=== PATIENT | female | born 1950 | race Caucasian/White ===

== ENCOUNTER 2022-04-14 11:59 | Inpatient (IN) ==
[2022-04-14 14:26] LABS: Basophils # (auto) 0.04 K/uL (0-0.2); Basophils % (auto) 0.2 %; Eosinophils # (auto) 0.12 K/uL (0-0.50); Eosinophils % (auto) 0.7 %; Hematocrit (blood only) 41.2 % (34.1-44.9); Hemoglobin 12.7 g/dl (12.0-16.0); Immature Granulocytes # (auto) 0.09 K/uL (0.00-0.02); Immature Granulocytes % (auto) 0.6 %; Lymphocytes # (auto) 1.54 K/uL (1.2-3.4); Lymphocytes % (auto) 9.6 %; Mean Corpuscular Hemoglobin 23.3 pg (25.0-34.0); Mean Corpuscular Hgb Conc 30.8 g/dL (32.0-36.0); Mean Corpuscular Volume 75.5 fL (80.0-100.0); Mean Platelet Volume 9.3 fL (9.4-12.3); Monocytes % (auto) 8.1 %; Neutrophils % (auto) 80.8 %; Platelet Count 295 K/uL (130-400); RDW Coefficient of Variation 18.9 % (11.5-14.5); RDW Standard Deviation 49.7 fL (36.4-46.3); Red Blood Count 5.46 M/uL (3.93-5.22); White Blood Count 16.09 K/ul (4.8-10.8)
[2022-04-14 14:52] LABS: Troponin I High Sensitivity 6.7 pg/ml (0-14)
[2022-04-14 15:04] LABS: Albumin Globulin Ratio 1.4 (0.9-2); Albumin Level 4.3 gm/dl (3.4-5.0); BUN Creatinine Ratio 18.4 (10-20); Bilirubin,Total 0.6 mg/dl (0.2-1.0); Calcium 9.6 mg/dl (8.5-10.1); Creatinine Clr Calc Pharmacy 62.8 ml/min; Est GFR (African American) 77.7 ml/min; Globulin 3.1 gm/dl (2.5-4.0); Potassium 4.3 mmol/L (3.5-5.1); Total Protein 7.4 gm/dl (6.0-8.3)
[2022-04-14 15:14] LABS: Influenza A virus by PCR Negative (Neg); Influenza B virus by PCR Negative (Neg); RSV by PCR Negative (Neg); SARS CoV2 RNA(COVID-19) Ceph NEGATIVE (Negative)
--- NOTE | 2022-04-14 15:46 | XRay Report ---
XR chest 2V PA/lateral CLINICAL HISTORY: Epigastric/chest pain TECHNIQUE: 2 views of the chest were obtained. Comparison: Comparison is made to chest radiograph 05/03/2018 FINDINGS: No lines and tubes are seen. Calcified aortic knob is seen. The lungs are clear. No evidence of pleur al effusion or pneumothorax. Degenerative changes are seen in the spine. IMPRESSION: No acute chest disease. ACT 112: Negative or not required by law. Electronically signed by: Marco Antonio Banuelos M.D. 04/14/2022 3:45 PM
[2022-04-14] MEDS ORDERED: OPTIRAY 350 100ml IV ONE (18:05)
--- NOTE | 2022-04-14 18:27 | CT Scan Report ---
CT SCAN OF THE ABDOMEN AND PELVIS WITH IV CONTRAST CLINICAL HISTORY: Generalized abdominal pain. COMPARISON STUDY: Abdominal radiograph dated 07/02/2008. TECHNIQUE: Following the IV administration of 86 cc of Optiray 350, CT scan of the abdomen and pelvi s is performed from the lung bases to the proximal femora. Images are reviewed in the axial, sagittal , and coronal planes. IV contrast was administered without complication. A dose lowering technique wa s utilized adhering to the principles of ALARA. CT DOSE: 548.01 mGy.cm FINDINGS: Lung bases: The heart is normal in size and without pericardial effusion. There are coronary artery c alcifications. The lung bases are clear noting bibasilar scarring/atelectasis. Liver: The contrast-enhanced liver is normal in size, contour, and attenuation. There is no intrahepa tic biliary ductal dilatation. The hepatic veins and portal veins are patent. There is periportal saturnino ma. Gallbladder: The gallbladder is slightly distended and contains calcified gallstones there is infiltr ation identified around the hepatic hilum and the appearance is suspicious for acute cholecystitis. Spleen: Normal in size and attenuation. Pancreas: Unremarkable. Adrenal glands: Unremarkable. Kidneys: The contrast enhanced kidneys demonstrate cortical atrophy and are without hydronephrosis. T he kidneys enhance symmetrically. A 2.2 cm cyst arises from the left kidney. Abdominal vasculature: The abdominal aorta is normal in course and caliber noting mild atheroscleroti c calcification. Bowel: Postsurgical change involving the stomach is consistent with a Willis-en-Y gastric bypass proced ure. There is mild to moderate colonic fecal retention. No bowel obstruction is seen. A duodenal dive rticulum is incidentally noted. The appendix is well-visualized and normal. A ventral hernia in the pelvis contains a nonobstructed small bowel loop. This is similar to 388. Peritoneum: There is no intraperitoneal free air or abdominal ascites. There is evidence of previous ventral hernia repair. There is laxity of the ventral abdominal wall with protrusion of abdominal con tents. Lymphadenopathy: None. Pelvic viscera: The bladder is decompressed and grossly unremarkable. The uterus is surgically absent . No adnexal lesion is seen. Surgical clips are present in the pelvis bilaterally. There is a fat-con taining groin hernia seen on the right. Skeletal structures: The skeletal structures are osteopenic. There is mild to moderate lumbosacral sp ondylosis. No lytic or blastic lesions are seen. IMPRESSION: 1. Cholelithiasis within a significantly distended gallbladder. Infiltration is seen in the hepatic h ilum and findings are suspicious for acute cholecystitis. Clinical and laboratory correlation will be required. A right upper quadrant ultrasound could be considered for further assessment. 2. A ventral hernia in the pelvis contains a nonobstructed small bowel loop. 3. Additional findings as above. ACT 112: Negative or not required by law. Electronically signed by: Hudson Curry M.D. 04/14/2022 6:24 PM
[2022-04-14] MEDS ORDERED: metroNIDAZOLE 500 MG/100 ML BAG IV STA (18:34)
[2022-04-14] MEDS ORDERED: cefTRIAXone SODIUM 1,000 MG in DEXTROSE 5% AD-VAN 50 ML IV STA (18:34)
--- NOTE | 2022-04-14 18:40 | Emergency Department Note ---
History of Present Illness General Chief Complaint: Abdominal Pain Stated Complaint: SHARP ABD PAIN, SHOULDER PAIN, SOB Time Seen by Provider: 04/14/22 18:00 History of Present Illness Provider Complaint: abdominal pain Onset (ago): hour(s) (7.5) Pain Consistency: intermittent Location: epigastric Radiation: back Severity: severe Maximum Pain Intensity: 9 Current Pain Intensity: 9 Quality: + stabbing and + sharp Relieved By: + nothing Exacerbated By: + nothing Context: no foreign travel, no possible food poisoning, no sick contacts, no recent antibiotic use, no recent injury or no history of similar episodes Associated Symptoms: + nausea; no vomiting, no diarrhea, no fever, no chills, no constipation, no dysuria, no hematemesis, no hematochezia, no melena, no hematuria, no syncope, no chest pain and no breathing difficulty Related Data Patient Confirmed : No Home Medications Medication Instructions Recorded Confirmed Type alprazolam 0.25 mg tablet (Xanax) 0.25 mg PO TID PRN Anxiety 02/25/18 01/16/22 History metoprolol succinate 25 mg 25 mg PO BID 02/25/18 01/16/22 History tablet,extended release 24 hr sertraline 100 mg tablet 100 mg PO BID 02/25/18 01/16/22 History cholecalciferol (vitamin D3) 50 50 mcg PO BID 10/15/20 01/16/22 History mcg (2,000 unit) capsule (Vitamin D3) losartan 100 mg tablet (Cozaar) 100 mg PO QPM 10/15/20 01/16/22 History rosuvastatin 5 mg tablet (Crestor) 5 mg PO QPM 10/15/20 01/16/22 History erythromycin 5 mg/gram (0.5 %) eye 0.5 inch ophthalmic (eye) BID #3.5 01/02/22 01/16/22 Rx ointment grams hydrocodone 5 mg-acetaminophen 325 1 tab PO Q4H PRN pain #10 tabs 01/02/22 01/16/22 Rx mg tablet Allergies Allergy/AdvReac Type Severity Reaction Status Date / Time adhesive Allergy Unknown SKIN Verified 01/16/22 08:09 IRRITATION nickel Allergy Unknown RASH Verified 01/16/22 08:09 Past Med/Surg History Medical History Anxiety Cardiac murmur no issues in years --has not seen cardio in>15 yrs Fatty liver Hearing deficit Hiatal hernia Hyperlipidemia Hypertension Migraine HX OF MIGRAINES Osteoarthritis HANDS Overactive bladder Restless leg syndrome Seasonal allergies Surgical History H/O bladder repair surgery X 2 H/O: hysterectomy History of carpal tunnel release RT/LEFT History of colonoscopy History of herniorrhaphy X 2 History of right cataract surgery History of tonsillectomy History of tooth extraction Hx of gastric bypass Nausea and vomiting after administration of anesthetic agent Family History Other No family history of adverse response to anesthesia Social History Smoking Status: Former smoker Cigarettes Per Day: QUIT 1984; Second Hand Exposure: No; Hx Alcohol Use: Yes Alcohol type: wine Hx Substance Use: No Preferred Language: Italian Communication Ability: Effective [employer] Project [employer] Required: No Beliefs That Will Affect Care: None Current Living Situation: Spouse Feels Safe at Home: Yes Assistive Devices: Glasses and Hearing Aid - Bilateral Physical Exam Vital Signs: Vital Signs - 24 hr 04/14/22 12:18 04/14/22 18:50 Temperature 36.5 C Temperature Source Temporal Artery Sc an Pulse Rate 54 L Pulse Rate [Apical ] 63 Pulse Rhythm Regular Pulse Rhythm [Apic al] Regular Pulse Strength Normal Pulse Strength [Ap ical] Normal Respiratory Rate 22 20 Respiratory Effort / Characteristics Non-Labored Sponta neous Non-Labored Sponta neous Respiratory Depth Normal Normal Respiratory Patter n Regular Regular Blood Pressure 196/105 H Blood Pressure [Ri ght Arm] 183/89 H Blood Pressure Bushra n 135 Blood Pressure Bushra n [Right Arm] 120 Blood Pressure Pos ition Sitting Blood Pressure Pos ition [Right Arm] Sitting Pulse Oximetry 96 97 Oxygen Delivery Me thod Room Air Room Air Sepsis Recent Feve r Within 48 Hours No Sepsis New/Unexpla ined Change in Men fan Status No Sepsis Action Take n by Nursing No Action Required Physical Exam: Physical Exam GENERAL: She is oriented to person, place, and time. She appears well-developed and well-nourished. She does not appear distressed. HENT: Exam performed. -Head: Normocephalic and atraumatic. -Right Ear: External ear normal. No mastoid tenderness. -Left Ear: External ear normal. No mastoid tenderness. -Mouth/Throat: The oropharynx is clear and moist. No trismus in the jaw. No dental abscesses or uvula swelling. No oropharyngeal exudate or tonsillar abscesses. EYES: Conjunctivae and EOM are normal. Pupils are equal, round, and reactive to light. Right eye exhibits no discharge. Left eye exhibits no discharge. No scleral icterus. NECK: Normal range of motion. Neck supple. No JVD present. No spinous process tenderness present. CV: Normal rate, regular rhythm, normal heart sounds and intact distal pulses. There is no peripheral edema. Palpable radial pulses bue. PULM/CHEST: Effort normal and breath sounds normal. No respiratory distress. No stridor. She has no wheezes. She has no rales. -Chest Wall: She exhibits no tenderness. ABD: The abdomen is soft. Bowel sounds are normal. She has no distension. No mass is present. There is tenderness to the epigastric area. There is no rebound, no guarding, no Onofre's sign and no tenderness at McBurney's point. Rovsig negative MUSC/SKEL: Normal range of motion. There is no peripheral edema, tenderness or deformity. LYMPH: No cervical adenopathy. NEURO: She is alert and oriented to person, place, and time. She has normal strength. No cranial nerve deficit or sensory deficit. Coordination and gait normal. GCS eye subscore is 4. GCS verbal subscore is 5. GCS motor subscore is 6. Cerebellar tests wnl. SKIN: Skin is warm and dry. She is not diaphoretic. PSYCH: She has a normal mood and affect. Behavior is normal. Judgment and thought content normal. Course Course 1800: The patient was evaluated in room B3. A complete history and physical exam was performed Cardiac monitoring: An order was placed for continuous cardiac monitoring. The monitor shows a rate of 50 with sinus rhythm Patient was seen during a time of extreme volume and extreme acuity in the emergency department. Nursing triage protocols were initiated and labs were drawn and imaging was conducted by protocol in the triage area. Labs show leukocytosis of 16. AST elevated 248 ALT 104 alkaline phosphatase [address] of the abdomen pelvis shows cholelithiasis with a distended gallbladder infiltration in the hepatic hilum consistent for acute cholecystitis. There is a ventral hernia of nonobstructed small bowel loop also. Patient will be treated with Rocephin and Flagyl in the emergency department. General surgery will be consulted. 1842: Spoke with Dr. Ochoa general surgery who asked that the patient be admitted to medicine and that an ultrasound of the right upper quadrant also be completed. 1916: [facility]. Administered Medications Discontinued Medications Ceftriaxone Sodium 1,000 mg/ (Dextrose) 50 mls @ 100 mls/hr IV NOW STA Stop: 04/14/22 19:03 Last Admin: 04/14/22 19:03 Dose: 100 mls/hr Documented By: ROSA Ioversol (Optiray 350 100ml) 80 ml IV ONCE ONE Stop: 04/14/22 18:06 Last Admin: 04/14/22 18:06 Dose: 80 ml Documented By: DASHA Medical Decision Making Laboratory Data Attestation: I reviewed the patient's lab results. 04/14/22 14:13 04/14/22 14:13 Lab Results 04/14/22 04/14/22 04/14/22 Range/Units 14:13 14:13 14:13 WBC 16.09 H (4.8-10.8) K/ul RBC 5.46 H (3.93-5.22) M/uL Hgb 12.7 (12.0-16.0) g/dl Hct 41.2 (34.1-44.9) % MCV 75.5 L (80.0-100.0) fL MCH 23.3 L (25.0-34.0) pg MCHC 30.8 L (32.0-36.0) g/dL RDW Std Deviation 49.7 H (36.4-46.3) fL RDW Coeff of Madonna 18.9 H (11.5-14.5) % Plt Count 295 (130-400) K/uL MPV 9.3 L (9.4-12.3) fL Immature Gran % (Auto) 0.6 % Neut % (Auto) 80.8 % Lymph % (Auto) 9.6 % [place] % (Auto) 8.1 % Eos % (Auto) 0.7 % Baso % (Auto) 0.2 % Neut # (Auto) 13.00 H (1.4-6.5) K/uL Lymph # (Auto) 1.54 (1.2-3.4) K/uL [place] # (Auto) 1.30 H (0.24-0.82) K/uL Eos # (Auto) 0.12 (0-0.50) K/uL Baso # (Auto) 0.04 (0-0.2) K/uL Immature Gran # (Auto) 0.09 H (0.00-0.02) K/uL Sodium 140 (136-145) mmol/L Potassium 4.3 (3.5-5.1) mmol/L Chloride 105 (98-107) mmol/L Carbon Dioxide 29 (21-32) mmol/L Anion Gap 6 (3-11) BUN 16 (6-23) mg/dl Creatinine 0.87 (0.6-1.2) mg/dl Est Cr Clr Drug Dosing 62.8 ml/min Est GFR ( Amer) 77.7 ml/min Est GFR (Non-Af Amer) 67.0 ml/min BUN/Creatinine Ratio 18.4 (10-20) Glucose 99 (70-99(Fasting)) mg/dl Calcium 9.6 (8.5-10.1) mg/dl Total Bilirubin 0.6 (0.2-1.0) mg/dl AST 248 H (13-39) U/L ALT 104 H (7-52) U/L Alkaline Phosphatase 158 H (34-104) U/L Troponin I High Sens 6.7 (0-14) pg/ml Total Protein 7.4 (6.0-8.3) gm/dl Albumin 4.3 (3.4-5.0) gm/dl Globulin 3.1 (2.5-4.0) gm/dl Albumin/Globulin Ratio 1.4 (0.9-2) Lipase 25 (11-82) U/L SARS-CoV-2 (PCR) NEGATIVE (Negative) Influenza Type A (PCR) Negative (Neg) Influenza Type B (PCR) Negative (Neg) RSV (RT-PCR) Negative (Neg) Imaging Data Radiologist's Impression: Chest X-Ray 04/14/22 15:10 XR chest 2V PA/lateral CLINICAL HISTORY: Epigastric/chest pain TECHNIQUE: 2 views of the chest were obtained. Comparison: Comparison is made to chest radiograph 05/03/2018 FINDINGS: No lines and tubes are seen. Calcified aortic knob is seen. The lungs are clear. No evidence of pleural effusion or pneumothorax. Degenerative changes are seen in the spine. IMPRESSION: No acute chest disease. ACT 112: Negative or not required by law. Electronically signed by: Marco Antonio Banuelos M.D. 04/14/2022 3:45 PM Abdomen/Pelvis CT 04/14/22 16:49 CT SCAN OF THE ABDOMEN AND PELVIS WITH IV CONTRAST CLINICAL HISTORY: Generalized abdominal pain. COMPARISON STUDY: Abdominal radiograph dated 07/02/2008. TECHNIQUE: Following the IV administration of 86 cc of Optiray 350, CT scan of the abdomen and pelvis is performed from the lung bases to the proximal femora. Images are reviewed in the axial, sagittal, and coronal planes. IV contrast was administered without complication. A dose lowering technique was utilized adhering to the principles of ALARA. CT DOSE: 548.01 mGy.cm FINDINGS: Lung bases: The heart is normal in size and without pericardial effusion. There are coronary artery calcifications. The lung bases are clear noting bibasilar scarring/atelectasis. Liver: The contrast-enhanced liver is normal in size, contour, and attenuation. There is no intrahepatic biliary ductal dilatation. The hepatic veins and portal veins are patent. There is periportal edema. Gallbladder: The gallbladder is slightly distended and contains calcified gallstones there is infiltration identified around the hepatic hilum and the appearance is suspicious for acute cholecystitis. Spleen: Normal in size and attenuation. Pancreas: Unremarkable. Adrenal glands: Unremarkable. Kidneys: The contrast enhanced kidneys demonstrate cortical atrophy and are without hydronephrosis. The kidneys enhance symmetrically. A 2.2 cm cyst arises from the left kidney. Abdominal vasculature: The abdominal aorta is normal in course and caliber noting mild atherosclerotic calcification. Bowel: Postsurgical change involving the stomach is consistent with a Willis-en-Y gastric bypass procedure. There is mild to moderate colonic fecal retention. No bowel obstruction is seen. A duodenal diverticulum is incidentally noted. The appendix is well-visualized and normal. A ventral hernia in the pelvis contains a nonobstructed small bowel loop. This is similar to 388. Peritoneum: There is no intraperitoneal free air or abdominal ascites. There is evidence of previous ventral hernia repair. There is laxity of the ventral abdominal wall with protrusion of abdominal contents. Lymphadenopathy: None. Pelvic viscera: The bladder is decompressed and grossly unremarkable. The uterus is surgically absent. No adnexal lesion is seen. Surgical clips are present in the pelvis bilaterally. There is a fat-containing groin hernia seen on the right. Skeletal structures: The skeletal structures are osteopenic. There is mild to moderate lumbosacral spondylosis. No lytic or blastic lesions are seen. IMPRESSION: 1. Cholelithiasis within a significantly distended gallbladder. Infiltration is seen in the hepatic hilum and findings are suspicious for acute cholecystitis. Clinical and laboratory correlation will be required. A right upper quadrant ultrasound could be considered for further assessment. 2. A ventral hernia in the pelvis contains a nonobstructed small bowel loop. 3. Additional findings as above. ACT 112: Negative or not required by law. Electronically signed by: Hudson Curry M.D. 04/14/2022 6:24 PM MDM Narrative 1800: The patient was evaluated in room B3. A complete history and physical exam was performed Cardiac monitoring: An order was placed for continuous cardiac monitoring. The monitor shows a rate of 50 with sinus rhythm Patient was seen during a time of extreme volume and extreme acuity in the emergency department. Nursing triage protocols were initiated and labs were drawn and imaging was conducted by protocol in the triage area. Labs show leukocytosis of 16. AST elevated 248 ALT 104 alkaline phosphatase [address] of the abdomen pelvis shows cholelithiasis with a distended gallbladder infiltration in the hepatic hilum consistent for acute cholecystitis. There is a ventral hernia of nonobstructed small bowel loop also. Patient will be treated with Rocephin and Flagyl in the emergency depa rtment. General surgery will be consulted. 1842: Spoke with Dr. Ochoa general surgery who asked that the patient be admitted to medicine and that an ultrasound of the right upper quadrant also be completed. 1916: Spoke with Dr. Henriquez [facility] limit the patient to her service. Impression & Plan Cholecystitis Discharge Plan Visit Data Chief Complaint: Abdominal Pain Stated Complaint: SHARP ABD PAIN, SHOULDER PAIN, SOB ED Provider: Imer Singletary Discharge Problem: Cholecystitis Patient Disposition: Admitted As Inpatient Forms Stand Alone Forms: [facility] [employer] Prescriptions Prescriptions: No Action erythromycin 5 mg/gram (0.5 %) ointment 0.5 inch ophthalmic (eye) BID Qty: 3.5 1RF hydrocodone-acetaminophen 5-325 mg tablet 1 tab PO Q4H PRN (Reason: pain) Qty: 10 0RF Rx Instructions: initial therapy Dr. Castillo [id number] sertraline 100 mg Tablet 100 mg PO BID alprazolam [Xanax] 0.25 mg Tablet 0.25 mg PO TID PRN (Reason: Anxiety) metoprolol succinate 25 mg Tablet Extended Release 24 Hr 25 mg PO BID losartan [Cozaar] 100 mg Tablet 100 mg PO QPM rosuvastatin [Crestor] 5 mg Tablet 5 mg PO QPM cholecalciferol (vitamin D3) [Vitamin D3] 50 mcg (2,000 unit) Capsule 50 mcg PO BID Hold Instructions: SURGERY Referrals Referrals: Bryce Lozano MD [Primary Care Provider] -
[2022-04-14] MEDS ORDERED: PIPERACILLIN/TAZOBACTAM 4.5 GM/120 ML BAG IV ONE (19:20)
[2022-04-14] MEDS ORDERED: METOPROLOL SUCC 25MG EXT REL TAB PO STA (19:23)
[2022-04-14] MEDS ORDERED: SODIUM CHLORIDE 0.9% 1000ML 1,000 ML IV ONE (19:23)
[2022-04-14] MEDS ORDERED: ALPRAZolam 0.25 MG TABLET PO STA (19:55)
--- NOTE | 2022-04-14 19:56 | History & Physical Report ---
Date of Service April 14, 2022 Assessment & Plan (1) Asymptomatic hypertensive urgency: Plan: Multifactorial : Acute cholecystitis, no sepsis for now Anxiety contributory Abnormal LFTs hx NAFLD Rule out CBD obstruction hyperlipidemia on statin Rx history of gastric bypass Medical telemetry given uncontrolled BP Zosyn Surgery consult Re: Acute cholecystitis (ER provider already in touch with provider communication clerk who recommends RUQ ultrasound.) N.p.o. until patient seen by surgery Analgesia, antiemetic as needed Facilitate home BP meds and titrate as needed Follow LFTs DVT prophylaxis. SCDs for now in anticipation of surgery Full code Patient requesting updates providers. Mr. Dyllan Llanos, contact #[phone]. Text document was generated using [employer] voice recognition software. It may contain grammatical or spelling errors. Kindly contact undersigned for clarification of any documentation item in question. History of Present Illness Chief Complaint: Abdominal pain Primary Care Provider: Bryce Lozano MD History obtained from patient, family, and records. Medical history significant for hypertension, hyperlipidemia, NAFLD, history of gastric bypass, anxiety disorder, past tobacco abuse. Patient experienced achy epigastric discomfort going to her shoulders and back today. No fever, no chills. No chest pain, no SOB. Prior episodes. Denies headache, admits to anxiety symptoms Highest SBP 200s at the ER. Ceftriaxone administered at the ER for possible cholecystitis Medical History as above Surgical History : Blepharoplasty, carpal tunnel surgery, cataract surgeries, hysterectomy, cystocele repair, ventral hernia repair Family History : Gallbladder disease, breast cancer, DM, heart disease Personal/Social history : Past tobacco abuse, occasional EtOH intake, retired director for adult living facility Allergies Allergy/AdvReac Type Severity Reaction Status Date / Time adhesive Allergy Unknown SKIN Verified 04/14/22 19:38 IRRITATION nickel Allergy Unknown RASH Verified 04/14/22 19:38 Home Medications Medication Instructions Recorded Confirmed Type alprazolam 0.25 mg tablet (Xanax) 0.25 mg PO TID PRN Anxiety 02/25/18 04/14/22 History metoprolol succinate 25 mg 25 mg PO BID 02/25/18 04/14/22 History tablet,extended release 24 hr sertraline 100 mg tablet 100 mg PO BID 02/25/18 04/14/22 History losartan 100 mg tablet (Cozaar) 100 mg PO QAM 10/15/20 04/14/22 History rosuvastatin 5 mg tablet (Crestor) 5 mg PO QPM /04/14/22 History Calcium W/ Vitamin D3 2 tab PO DAILY 04/14/22 04/14/22 History Collagen Ultra 1 tab PO DAILY 04/14/22 04/14/22 History amoxicillin 500 mg capsule 500 mg PO BID 04/14/22 04/14/22 History biotin 10 mg tablet 10 mg PO TID 04/14/22 04/14/22 History buspirone 15 mg tablet 7.5 - 15 mg PO TID PRN Anxiety 04/14/22 04/14/22 History chlorhexidine gluconate 0.12 % 15 ml PO BID 04/14/22 04/14/22 History mouthwash cholecalciferol (vitamin D3) 25 75 mcg PO DAILY 04/14/22 04/14/22 History mcg (1,000 unit) capsule (Vitamin D3) solifenacin 10 mg tablet 10 mg PO DAILY 04/14/22 04/14/22 History triamcinolone acetonide 0.1 % 1 applic topical BID PRN Skin 04/14/22 04/14/22 History topical cream Irritation Past Med/Surg History Medical History Anxiety Cardiac murmur no issues in years --has not seen cardio in>15 yrs Fatty liver Hearing deficit Hiatal hernia Hyperlipidemia Hypertension Migraine HX OF MIGRAINES Osteoarthritis HANDS Overactive bladder Restless leg syndrome Seasonal allergies Surgical History H/O bladder repair surgery X 2 H/O: hysterectomy History of carpal tunnel release RT/LEFT History of colonoscopy History of herniorrhaphy X 2 History of right cataract surgery History of tonsillectomy History of tooth extraction Hx of gastric bypass Nausea and vomiting after administration of anesthetic agent Family History Other No family history of adverse response to anesthesia Social History Smoking Status: Never smoker Cigarettes Per Day: QUIT 1984; Second Hand Exposure: No; Hx Alcohol Use: Yes Alcohol type: wine Hx Substance Use: No Preferred Language: Spanish Communication Ability: Effective Patient Representative Required: No Beliefs That Will Affect Care: None Current Living Situation: Spouse Other Information That Helps Us Care for You: No Feels Safe at Home: Yes Safety Concerns: Feels Safe At This Time Assistive Devices: Glasses and Hearing Aid - Bilateral Review of Systems Review of Systems: As per HPI, all other systems reviewed and negative Physical Exam Physical Exam: GENERAL: Comfortable, slightly anxious, pleasant, obese, looks younger for stated age, no respiratory distress SKIN: Normal color, warm HEENT: Marvin palpebral conjunctivae, no ptosis, dry buccal mucosa NECK : Supple, short neck, no tenderness CHEST : CTA, no tenderness HEART : Bradycardic, no obvious murmurs ABDOMEN: Some distention, epigastric tenderness EXTREMITIES : Minimal LE swelling, no LE tenderness, no other conspicuous deformities noted NEUROLOGIC : Coherent, no facial asymmetry, no other gross focality Results & Data Results & Data ([facility]) Vital Signs (Past 12 Hours) Vital Signs Temp Pulse Pulse Resp BP BP Pulse Ox 04/14/22 18:50 63 20 183/89 H 97 04/14/22 12:18 36.5 C 54 L 22 196/105 H 96 O2 Del Method 04/14/22 18:50 Room Air 04/14/22 12:18 Room Air Laboratory Results Laboratory Results WBC 16.09 K/ul (4.8-10.8) H 04/14/22 14:13 RBC 5.46 M/uL (3.93-5.22) H 04/14/22 14:13 Hgb 12.7 g/dl (12.0-16.0) 04/14/22 14:13 Hct 41.2 % (34.1-44.9) 04/14/22 14:13 MCV 75.5 fL (80.0-100.0) L 04/14/22 14:13 MCH 23.3 pg (25.0-34.0) L 04/14/22 14:13 MCHC 30.8 g/dL (32.0-36.0) L 04/14/22 14:13 RDW Std Deviation 49.7 fL (36.4-46.3) H 04/14/22 14:13 RDW Coeff of Madonna 18.9 % (11.5-14.5) H 04/14/22 14:13 Plt Count 295 K/uL (130-400) 04/14/22 14:13 MPV 9.3 fL (9.4-12.3) L 04/14/22 14:13 Immature Gran % (Auto) 0.6 % 04/14/22 14:13 Neut % (Auto) 80.8 % 04/14/22 14:13 Lymph % (Auto) 9.6 % 04/14/22 14:13 Real % (Auto) 8.1 % 04/14/22 14:13 Eos % (Auto) 0.7 % 04/14/22 14:13 Baso % (Auto) 0.2 % 04/14/22 14:13 Neut # (Auto) 13.00 K/uL (1.4-6.5) H 04/14/22 14:13 Lymph # (Auto) 1.54 K/uL (1.2-3.4) 04/14/22 14:13 Real # (Auto) 1.30 K/uL (0.24-0.82) H 04/14/22 14:13 Eos # (Auto) 0.12 K/uL (0-0.50) 04/14/22 14:13 Baso # (Auto) 0.04 K/uL (0-0.2) 04/14/22 14:13 Immature Gran # (Auto) 0.09 K/uL (0.00-0.02) H 04/14/22 14:13 Sodium 140 mmol/L (136-145) 04/14/22 14:13 Potassium 4.3 mmol/L (3.5-5.1) 04/14/22 14:13 Chloride 105 mmol/L (98-107) 04/14/22 14:13 Carbon Dioxide 29 mmol/L (21-32) 04/14/22 14:13 Anion Gap 6 (3-11) 04/14/22 14:13 BUN 16 mg/dl (6-23) 04/14/22 14:13 Creatinine 0.87 mg/dl (0.6-1.2) 04/14/22 14:13 Est Cr Clr Drug Dosing 62.8 ml/min 04/14/22 14:13 Est GFR ( Amer) 77.7 ml/min 04/14/22 14:13 Est GFR (Non-Af Amer) 67.0 ml/min 04/14/22 14:13 BUN/Creatinine Ratio 18.4 (10-20) 04/14/22 14:13 Glucose 99 mg/dl (70-99(Fasting)) 04/14/22 14:13 Calcium 9.6 mg/dl (8.5-10.1) 04/14/22 14:13 Total Bilirubin 0.6 mg/dl (0.2-1.0) 04/14/22 14:13 AST 248 U/L (13-39) H 04/14/22 14:13 ALT 104 U/L (7-52) H 04/14/22 14:13 Alkaline Phosphatase 158 U/L (34-104) H 04/14/22 14:13 Troponin I High Sens 6.7 pg/ml (0-14) 04/14/22 14:13 Total Protein 7.4 gm/dl (6.0-8.3) 04/14/22 14:13 Albumin 4.3 gm/dl (3.4-5.0) 04/14/22 14:13 Globulin 3.1 gm/dl (2.5-4.0) 04/14/22 14:13 Albumin/Globulin Ratio 1.4 (0.9-2) 04/14/22 14:13 Lipase 25 U/L (11-82) 04/14/22 14:13 SARS-CoV-2 (PCR) NEGATIVE (Negative) 04/14/22 14:13 Influenza Type A (PCR) Negative (Neg) 04/14/22 14:13 Influenza Type B (PCR) Negative (Neg) 04/14/22 14:13 RSV (RT-PCR) Negative (Neg) 04/14/22 14:13 Impressions Chest X-Ray 04/14/22 15:10 XR chest 2V PA/lateral CLINICAL HISTORY: Epigastric/chest pain TECHNIQUE: 2 views of the chest were obtained. Comparison: Comparison is made to chest radiograph 05/03/2018 FINDINGS: No lines and tubes are seen. Calcified aortic knob is seen. The lungs are clear. No evidence of pleural effusion or pneumothorax. Degenerative changes are seen in the spine. IMPRESSION: No acute chest disease. ACT 112: Negative or not required by law. Electronically signed by: Marco Antonio Banuelos M.D. 04/14/2022 3:45 PM Abdomen/Pelvis CT 04/14/22 16:49 CT SCAN OF THE ABDOMEN AND PELVIS WITH IV CONTRAST CLINICAL HISTORY: Generalized abdominal pain. COMPARISON STUDY: Abdominal radiograph dated 07/02/2008. TECHNIQUE: Following the IV administration of 86 cc of Optiray 350, CT scan of the abdomen and pelvis is performed from the lung bases to the proximal femora. Images are reviewed in the axial, sagittal, and coronal planes. IV contrast was administered without complication. A dose lowering technique was utilized adhering to the principles of ALARA. CT DOSE: 548.01 mGy.cm FINDINGS: Lung bases: The heart is normal in size and without pericardial effusion. There are coronary artery calcifications. The lung bases are clear noting bibasilar scarring/atelectasis. Liver: The contrast-enhanced liver is normal in size, contour, and attenuation. There is no intrahepatic biliary ductal dilatation. The hepatic veins and portal veins are patent. There is periportal edema. Gallbladder: The gallbladder is slightly distended and contains calcified gallstones there is infiltration identified around the hepatic hilum and the appearance is suspicious for acute cholecystitis. Spleen: Normal in size and attenuation. Pancreas: Unremarkable. Adrenal glands: Unremarkable. Kidneys: The contrast enhanced kidneys demonstrate cortical atrophy and are without hydronephrosis. The kidneys enhance symmetrically. A 2.2 cm cyst arises from the left kidney. Abdominal vasculature: The abdominal aorta is normal in course and caliber noting mild atherosclerotic calcification. Bowel: Postsurgical change involving the stomach is consistent with a Willis-en-Y gastric bypass procedure. There is mild to moderate colonic fecal retention. No bowel obstruction is seen. A duodenal diverticulum is incidentally noted. The appendix is well-visualized and normal. A ventral hernia in the pelvis contains a nonobstructed small bowel loop. This is similar to 388. Peritoneum: There is no intraperitoneal free air or abdominal ascites. There is evidence of previous ventral hernia repair. There is laxity of the ventral abdominal wall with protrusion of abdominal contents. Lymphadenopathy: None. Pelvic viscera: The bladder is decompressed and grossly unremarkable. The uterus is surgically absent. No adnexal lesion is seen. Surgical clips are present in the pelvis bilaterally. There is a fat-containing groin hernia seen on the right. Skeletal structures: The skeletal structures are osteopenic. There is mild to moderate lumbosacral spondylosis. No lytic or blastic lesions are seen. IMPRESSION: 1. Cholelithiasis within a significantly distended gallbladder. Infiltration is seen in the hepatic hilum and findings are suspicious for acute cholecystitis. Clinical and laboratory correlation will be required. A right upper quadrant ultrasound could be considered for further assessment. 2. A ventral hernia in the pelvis contains a nonobstructed small bowel loop. 3. Additional findings as above. ACT 112: Negative or not required by law. Electronically signed by: Hudson Curry M.D. 04/14/2022 6:24 PM Diagnostic Findings EKG as per my interpretation :Rate 55, sinus bradycardia, normal axis, no ischemia
[2022-04-14] MEDS ORDERED: PROMETHAZINE HCL 12.5 MG in SODIUM CHLORIDE 0.9% 50 ML IV PRN (20:03)
[2022-04-14] MEDS ORDERED: MoRPHine SULFATE 4 MG/ML 1 ML CARP\\VIAL IV PRN (20:03)
[2022-04-14] MEDS ORDERED: ACETAMINOPHEN 325 MG TAB PO PRN (20:03)
[2022-04-14] MEDS ORDERED: hydrALAZINE HCL 20 MG/ML VIAL IV STA (20:31)
--- NOTE | 2022-04-14 21:04 | Surgery Consultation ---
Date of Consultation April 14, 2022 Assessment & Plan (1) Cholecystitis: I discussed with the treating emergency room physician and the patient is being admitted on the hospitalist service. We recommend proceeding as follows: Provide analgesics Provide antiemetics Continue antibiotics. Zosyn has been initiated this should continue Provide IV fluid for hydration Implement n.p.o. status A gallbladder ultrasound for further delineation of patient's biliary anatomy and evidence of acute cholecystitis has been ordered we will follow for results of this Recommend following serial labs to see if there is any worsening of patient's LFTs Consideration will be given to perform acute cholecystectomy pending the results of patient's repeat labs as well as gallbladder ultrasound. The patient's prior abdominal surgeries add some complex to this case and if there is any evidence of choledocholithiasis we will have to have a discussion with gastroenterology as an ERCP would need to be performed laparoscopically in the setting of prior gastric bypass. Additional recommendations be forthcoming based on pending labs and studies. Supervising Physician Co-Signing Physician Notes I personally saw and evaluated the patient with Tyron Kuo PA-C and agree with the assessment and plan. 72-year-old female with likely acute cholecystitis Patient is being admitted to the medical service We will get a right upper quadrant ultrasound to look at the CBD Keep n.p.o. give IV antibiotics History of Present Illness Reason for Consultation: Abdominal pain History of Present Illness This is a 72-year-old female who presented to [facility] emergency department secondary to abdominal pain. Patient notes that she was in her usual state of health when she developed abdominal pain approximately 10:00 AM this morning. She notes that the pain was primarily located in the e pigastric area as well as her right upper quadrant with radiation to her right shoulder and also some pain in her back. She denies any fevers, shakes, or chills but did report nausea and vomiting. She notes that this pain was unrelated to any meals. She denies any modifying factors to her pain. She notes that she has had prior abdominal surgeries in the form of gastric bypass (performed as an open procedure), hysterectomy, bladder surgery, as well as a ventral hernia repair. Since arrival to the emergency department the patient has had labs and imaging which I independent reviewed. CBC revealed white blood cell count was elevated 16.0. Hemoglobin and hematocrit are both normal. Platelet count was also noted to be normal. Chemistry profile showed sodium and potassium were normal as were her BUN and creatinine. The patient's total bilirubin was within normal range however her transaminases were elevated with an AST level of 248 and an ALT level of 104. Her alkaline phosphatase was also elevated at 158. There is no elevation of patient's lipase. Testing for COVID, influenza A, influenza B, and RSV were all noted be negative. The patient did undergo a chest x-ray that rosalie wed no evidence of pneumonia. A CT scan of the abdomen and pelvis was performed that showed the patient had cholelithiasis with a significantly distended gallbladder and inflammation noted near the hepatic hilum. These findings were concerning for acute cholecystitis. Ventral hernia was noted with a nonobstructive loop of small bowel noted. At the time of my interview the patient was resting comfortably in bed and she was in no distress. Allergies Allergy/AdvReac Type Severity Reaction Status Date / Time adhesive Allergy Unknown SKIN Verified 04/14/22 19:38 IRRITATION nickel Allergy Unknown RASH Verified 04/14/22 19:38 Home Medications Medication Instructions Recorded Confirmed Type alprazolam 0.25 mg tablet (Xanax) 0.25 mg PO TID PRN Anxiety 02/25/18 04/14/22 History metoprolol succinate 25 mg 25 mg PO BID 02/25/18 04/14/22 History tablet,extended release 24 hr sertraline 100 mg tablet 100 mg PO BID 02/25/18 04/14/22 History losartan 100 mg tablet (Cozaar) 100 mg PO QAM 10/15/20 04/14/22 History rosuvastatin 5 mg tablet (Crestor) 5 mg PO QPM 10/15/20 04/14/22 History Calcium W/ Vitamin D3 2 tab PO DAILY 04/14/22 04/14/22 History Collagen Ultra 1 tab PO DAILY 04/14/22 04/14/22 History amoxicillin 500 mg capsule 500 mg PO BID 04/14/22 04/14/22 History biotin 10 mg tablet 10 mg PO TID 04/14/22 04/14/22 History buspirone 15 mg tablet 7.5 - 15 mg PO TID PRN Anxiety 04/14/22 04/14/22 History chlorhexidine gluconate 0.12 % 15 ml PO BID 04/14/22 04/14/22 History mouthwash cholecalciferol (vitamin D3) 25 75 mcg PO DAILY 04/14/22 04/14/22 History mcg (1,000 unit) capsule (Vitamin D3) solifenacin 10 mg tablet 10 mg PO DAILY 04/14/22 04/14/22 History triamcinolone acetonide 0.1 % 1 applic topical BID PRN Skin 04/14/22 04/14/22 History topical cream Irritation Patient History Medical History Anxiety Cardiac murmur no issues in years --has not seen cardio in>15 yrs Fatty liver Hearing deficit Hiatal hernia Hyperlipidemia Hypertension Migraine HX OF MIGRAINES Osteoarthritis HANDS Overactive bladder Restless leg syndrome Seasonal allergies Surgical History H/O bladder repair surgery X 2 H/O: hysterectomy History of carpal tunnel release RT/LEFT History of colonoscopy History of herniorrhaphy X 2 History of right cataract surgery History of tonsillectomy History of tooth extraction Hx of gastric bypass Nausea and vomiting after administration of anesthetic agent Family History Other No family history of adverse response to anesthesia Social History Smoking Status: Never smoker Cigarettes Per Day: QUIT 1984; Second Hand Exposure: No; Hx Alcohol Use: Yes Alcohol type: wine Hx Substance Use: No Preferred Language: Occitan Communication Ability: Effective 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 Beliefs That Will Affect Care: None Current Living Situation: Spouse Other Information That Helps Us Care for You: No Feels Safe at Home: Yes Safety Concerns: Feels Safe At This Time Assistive Devices: Glasses and Hearing Aid - Bilateral Review of Systems Constitutional: no fever and no chills Eyes: no eye pain Ear, Nose, Mouth, Throat: no ear pain Respiratory: no cough Cardiovascular: no chest pain Gastrointestinal: as per Subjective / HPI Genitourinary: no dysuria Musculoskeletal: + back pain (Radiating from abdomen) Integumentary: no rash Neurologic: no localized weakness Physical Exam Constitutional: WD/WN, vitals as above Eyes: + anicteric sclerae ENMT: Ears: no hearing impairment and no external ear abnormality Mouth: no oropharynx abnormality Neck: trachea midline Respiratory: normal respiratory effort; no respiratory distress and no labored breathing Cardiovascular: Rate/Rhythm: regular rate and regular rhythm Gastrointestinal (Abdomen): Abdomen is soft, nonrigid, and nondistended. Bowel sounds are present. The patient had a well-healed midline incision. There is no rebound tenderness or guarding. The patient did have pain with deep palpation in the epigastric area and the right upper quadrant. Musculoskeletal: No calf tenderness Skin: no rashes Neurologic: moves all extremities Psychiatric: A+Ox3, euthymic affect Results & Data ([facility]) Vital Signs (Past 12 Hours) Vital Signs Temp Pulse Pulse Resp BP BP Pulse Ox 04/14/22 20:01 57 L 209/101 H 98 04/14/22 18:50 63 20 183/89 H 97 04/14/22 12:18 36.5 C 54 L 22 196/105 H 96 O2 Del Method 04/14/22 20:01 04/14/22 18:50 Room Air 04/14/22 12:18 Room Air PG Care Time/CCT Total # of Minutes Spent Total Time Spent with Patient: Total time spent is greater than 50% in coordination of care (as documented) at patient's floor/unit and/or counseling patient: Coding Level of Care Code 66672 INT INP/OBS CARE 375MIN Diagnoses Cholecystitis K81.9
[2022-04-14] MEDS: oxyCODONE HCL IR 5 MG TAB (IMMEDIATE RELEASE) PO PRN (21:07)
[2022-04-14] MEDS: SERTRALINE HCL 100 MG TABLET PO SCH (22:35)
[2022-04-15] MEDS: PIPERACILLIN/TAZOBACTAM 3.375 GM in DEXTROSE 5% 100 ML IV SCH ×3 (01:14→17:39)
[2022-04-15 06:23] LABS: Basophils # (auto) 0.02 K/uL (0-0.2); Basophils % (auto) 0.2 %; Eosinophils # (auto) 0.02 K/uL (0-0.50); Eosinophils % (auto) 0.2 %; Hematocrit (blood only) 35.7 % (34.1-44.9); Immature Granulocytes # (auto) 0.07 K/uL (0.00-0.02); Immature Granulocytes % (auto) 0.8 %; Lymphocytes # (auto) 1.27 K/uL (1.2-3.4); Lymphocytes % (auto) 13.6 %; Mean Corpuscular Hemoglobin 23.2 pg (25.0-34.0); Mean Corpuscular Hgb Conc 30.8 g/dL (32.0-36.0); Mean Corpuscular Volume 75.3 fL (80.0-100.0); Mean Platelet Volume 9.3 fL (9.4-12.3); Monocytes # (auto) 0.86 K/uL (0.24-0.82); Monocytes % (auto) 9.2 %; Neutrophils # (auto) 7.09 K/uL (1.4-6.5); Platelet Count 241 K/uL (130-400); RDW Coefficient of Variation 18.2 % (11.5-14.5); RDW Standard Deviation 48.7 fL (36.4-46.3); Red Blood Count 4.74 M/uL (3.93-5.22); White Blood Count 9.33 K/ul (4.8-10.8)
[2022-04-15 06:53] LABS: Albumin Level 3.7 gm/dl (3.4-5.0); Bilirubin,Total 0.5 mg/dl (0.2-1.0); Calcium 8.6 mg/dl (8.5-10.1); Potassium 4.2 mmol/L (3.5-5.1)
[2022-04-15 06:59] LABS: Albumin Globulin Ratio 1.5 (0.9-2); BUN Creatinine Ratio 14.9 (10-20); Creatinine Clr Calc Pharmacy 62.3 ml/min; Est GFR (African American) 77.7 ml/min; Globulin 2.5 gm/dl (2.5-4.0); Total Protein 6.2 gm/dl (6.0-8.3)
--- NOTE | 2022-04-15 07:34 | Ultrasound Report ---
US gallbladder HISTORY: 72 years-old Female rocholeystitis acute right upper quadrant abdominal pain COMPARISON: CT abdomen pelvis 04/14/2022 TECHNIQUE: Multiple real-time sonographic images of the abdominal right upper quadrant were obtained assessing grayscale appearance and color flow FINDINGS: The visualized pancreas and liver appear unremarkable. The liver measures up to 16.3 cm in length. The gallbladder measures 9.3 cm in length and demonstrates wall thickening measuring up to approximat florence 4 to 5 mm. Trace pericholecystic fluid. The gallbladder is filled with sludge and stones. The pat ient was given pain medication prior to the study, therefore sonographic Onofre sign could not be obt ained. Mild common bile duct dilation measures up to 8 mm. Imaged right kidney is unremarkable without hydronephrosis. Mild pelviectasis. IMPRESSION: 1. Cholelithiasis with sonographic evidence of acute cholecystitis. 2. Mild common bile duct dilation. Correlation with LFTs recommended. ACT 112: Negative or not required by law. The above report was generated using voice recognition software. It may contain grammatical, syntax o r spelling errors. Electronically signed by: Choco Viramontes M.D. 04/15/2022 7:32 AM
--- NOTE | 2022-04-15 08:34 | Surgery Progress Note ---
Date of Service April 15, 2022 Assessment & Plan (1) Cholecystitis: Plan: Ultrasound images and results personally viewed by myself she does have some dilated CBD I did discuss with gastroenterology and they recommended trending her LFTs she has no clear indications of choledocholithiasis We will plan on laparoscopic cholecystectomy, possible open, possible intraoperative cholangiogram Consent was obtained, risk discussed including bleeding, infection, bile leak, ductal injury, injury to surrounding structures She is at high risk for an open procedure as well as injury to bowel due to her prior open Willis-en-Y gastric bypass and ventral hernia repair She understands this and wishes to proceed with the procedure Admission and Anticipated Discharge Date Admission Date: April 14, 2022 Subjective Patient seen and examined. Pain is improved. Denies any nausea or vomiting at this time. Afebrile. Review of Systems Constitutional: no fever and no chills Physical Exam Constitutional: WD/WN, vitals as above Gastrointestinal (Abdomen): Inspection/Auscultation: abdomen normal to inspection; abdomen not distended Percussion/Palpation: + abdomen tender (Right upper quadrant and epigastric) and abdomen soft; no guarding, abdomen not rigid and no hernia Musculoskeletal: no cyanosis or clubbing, extremities motor strength 5/5 Results & Data ([facility]) Vital Signs (Past 12 Hours) Vital Signs Temp Pulse Pulse Resp BP Pulse Ox O2 Del Method 04/14/22 23:04 57 L 04/15/22 02:49 37.1 C 63 16 126/68 94 Room Air 04/14/22 22:15 36.6 C 56 L 16 158/79 H 96 Room Air 04/14/22 21:35 60 16 195/104 H 98 Room Air PG Care Time/CCT Total # of Minutes Spent Total Time Spent with Patient: Total time spent is greater than 50% in coordination of care (as documented) at patient's floor/unit and/or counseling patient: Coding Level of Care Code 11711 SUB INP/OBS CARE 25MIN Diagnoses Cholecystitis K81.9
[2022-04-15] MEDS: LOSARTAN POTASSIUM 50 MG TAB PO SCH (08:59)
[2022-04-15] MEDS: SERTRALINE HCL 100 MG TABLET PO SCH ×2 (08:59→21:46)
[2022-04-15] MEDS: METOPROLOL SUCC 25MG EXT REL TAB PO SCH ×2 (08:59→21:45)
--- NOTE | 2022-04-15 09:10 | Communication Note ---
Date of Service: April 15, 2022 GI was asked to evaluate, ?need for ERCP. She is s/p RYGB presenting with cholecystitis. She does have some CBD dilation and elevated transaminases but n ormal Tbili. There is no obvious CBD stone on imaging. Case discussed with biliary team, no contraindication to proceeding with CCY. Recommend to repeat her LFTs after CCY, for persistent elevation, plan for OP [facility] at [facility] within the week. Will sign off. Thank you for allowing us to participate in the care of this patient. Please call with any acute changes, questions or concerns. Please see addendum below with additional recommendation from my supervising physician.
--- NOTE | 2022-04-15 09:48 | Anesthesiology Consultation ---
Date of Service April 15, 2022 Assessment & Plan (1) Encounter for pre-operative examination: Chart Review Chart Review: Acceptable Risk for Surgery History Surgery Operation Date: 04/15/22 08:20 Proposed Procedures p Laparoscopic Cholecystectomy Possible Open Possible Cholangiogram - Sudhakar Ochoa DO Height/Weight Height: 5 ft 4 in Weight: 84.4 kg Allergies Allergy/AdvReac Type Severity Reaction Status Date / Time adhesive Allergy Unknown SKIN Verified 04/14/22 19:38 IRRITATION nickel Allergy Unknown RASH Verified 04/14/22 19:38 Medications Home Medications Medication Instructions Recorded Confirmed Last Taken alprazolam 0.25 mg tablet (Xanax) 0.25 mg PO TID PRN Anxiety 02/25/18 04/14/22 01/15/22 metoprolol succinate 25 mg 25 mg PO BID 02/25/18 04/14/22 04/14/22 08:00 tablet,extended release 24 hr sertraline 100 mg tablet 100 mg PO BID 02/25/18 04/14/22 04/14/22 08:00 losartan 100 mg tablet (Cozaar) 100 mg PO QAM 10/15/20 04/14/22 04/14/22 rosuvastatin 5 mg tablet (Crestor) 5 mg PO QPM 10/15/20 04/14/22 04/13/22 Calcium W/ Vitamin D3 2 tab PO DAILY 04/14/22 04/14/22 04/14/22 Collagen Ultra 1 tab PO DAILY 04/14/22 04/14/22 04/14/22 amoxicillin 500 mg capsule 500 mg PO BID 04/14/22 04/14/22 04/14/22 08:00 biotin 10 mg tablet 10 mg PO TID 04/14/22 04/14/22 04/14/22 12:00 buspirone 15 mg tablet 7.5 - 15 mg PO TID PRN Anxiety 04/14/22 04/14/22 Unknown chlorhexidine gluconate 0.12 % 15 ml PO BID 04/14/22 04/14/22 04/14/22 08:00 mouthwash cholecalciferol (vitamin D3) 25 75 mcg PO DAILY 04/14/22 04/14/22 04/14/22 mcg (1,000 unit) capsule (Vitamin D3) solifenacin 10 mg tablet 10 mg PO DAILY 01/04/14/22 04/14/22 triamcinolone acetonide 0.1 % 1 applic topical BID PRN Skin 04/14/22 04/14/22 Unknown topical cream Irritation Active Medications Generic Name Dose Route Start Last Admin Trade Name Freq PRN Reason Stop Dose Admin Sodium Chloride 1,000 mls @ 60 mls/hr 04/14/22 19:23 04/14/22 19:46 Nss 1000ml IV 04/15/22 12:02 60 mls/hr .[id number] ONE Administration Promethazine HCl 12.5 mg/ 50.5 mls @ 202 mls/hr 04/14/22 20:03 04/15/22 00:38 Sodium Chloride IV 05/14/22 20:02 Infused Q6H PRN Infusion Nausea And Vomiting Piperacillin Sod/Tazobactam 115 mls @ 28.75 mls/hr 04/15/22 02:00 04/15/22 05:23 Sod 3.375 gm/ Dextrose IV 04/25/22 01:59 Infused Q8H JAN Infusion Protocol Losartan Potassium 100 mg 04/15/22 09:00 04/15/22 08:59 Losartan Potassium 50 Mg Tab PO 05/15/22 08:59 Not Given QAM JAN Metoprolol Succinate 25 mg 04/15/22 09:00 04/15/22 08:59 Metoprolol Succ 25mg Ext Rel Tab PO 05/15/22 08:59 Not Given BID [facility] Miscellaneous 1 each 04/15/22 00:00 04/15/22 08:59 Solifenacin 10 Mg - Order Awaiting Action N/A 05/15/22 00:00 Not Given QS JAN Morphine Sulfate 4 mg 04/14/22 20:03 04/15/22 00:11 Morphine Sulfate 4 Mg/Ml 1 Ml Carp\Vial IV 04/28/22 20:02 4 mg Q4H PRN Administration Pain Oxycodone HCl 5 mg 04/14/22 20:03 04/14/22 21:07 Oxycodone Hcl Ir 5 Mg Tab (Immediate Release) PO 04/28/22 20:02 5 mg Q4H PRN Administration Pain Sertraline HCl 100 mg 04/14/22 21:49 04/15/22 08:59 Sertraline Hcl 100 Mg Tablet PO 05/14/22 21:48 Not Given BID JAN Past Medical History Medical History Anxiety Cardiac murmur no issues in years --has not seen cardio in>15 yrs Fatty liver Hearing deficit Hiatal hernia Hyperlipidemia Hypertension Migraine HX OF MIGRAINES Osteoarthritis HANDS Overactive bladder Restless leg syndrome Seasonal allergies Past Family History Family History Other No family history of adverse response to anesthesia Past Surgical History Surgical History H/O bladder repair surgery X 2 H/O: hysterectomy History of carpal tunnel release RT/LEFT History of colonoscopy History of herniorrhaphy X 2 History of right cataract surgery History of tonsillectomy History of tooth extraction Hx of gastric bypass Nausea and vomiting after administration of anesthetic agent Social History Smoking Status: Never smoker tobacco type: cigarettes Smoking cigarettes per day: QUIT 1984 Hx Alcohol Use: Yes Alcohol type: wine alcohol intake frequency: holidays/special occasions only Hx Substance Use: No substance use type: does not use Physical Exam Vital Signs Last Vital Signs Temp 37 C 04/15/22 07:58 Pulse 58 L 04/15/22 07:58 Resp 18 04/15/22 07:58 BP 143/71 H 04/15/22 07:58 Pulse Ox 95 04/15/22 07:58 O2 Del Method 04/15/22 07:58 Testing Laboratory Results 04/15/22 06:02 04/15/22 06:02 Electrocardiogram Date: 04/14/22 Findings: + SB @ (58)
[2022-04-15] MEDS ORDERED: SODIUM CHLORIDE 0.9% 1000ML 1,000 ML IV SCH (10:00)
[2022-04-15] MEDS ORDERED: LIDOCAINE 2% MPF LOCAL 5 ML VIAL INFIL ONE (10:45)
[2022-04-15] MEDS ORDERED: ROCURONIUM BROMIDE 10 MG/ML 5 ML VIAL IV ONE ×2 (10:45→13:14)
[2022-04-15] MEDS ORDERED: PROPOFOL IV EMULSION 10 MG/ML 20 ML VIAL IV ONE (10:45)
[2022-04-15] MEDS ORDERED: fentaNYL citrate 100 MCG/2 ML VIAL ONE (10:45)
[2022-04-15] MEDS ORDERED: MIDAZOLAM HCL 1 MG/ML 2ML VIAL ONE (10:45)
[2022-04-15] MEDS ORDERED: DEXAMETHASONE SOD INJ 4 MG/ML VIAL ONE (10:46)
[2022-04-15] MEDS ORDERED: ONDANSETRON INJ 2 MG/ML 2 ML VIAL ONE (10:46)
[2022-04-15] MEDS ORDERED: METOCLOPRAMIDE HCL INJ 5 MG/ML 2 ML VIAL ONE (10:46)
[2022-04-15] MEDS ORDERED: ONDANSETRON INJ 2 MG/ML 2 ML VIAL IV PRN (11:09)
[2022-04-15] MEDS ORDERED: ATROPINE SULFATE 0.1 MG/ML 10ML SYR IV PRN (11:09)
[2022-04-15] MEDS ORDERED: PROMETHAZINE HCL 12.5 MG in SODIUM CHLORIDE 0.9% 50 ML IV PRN (11:09)
[2022-04-15] MEDS ORDERED: LABETALOL HCL IV 5 MG/ML 20ML IV PRN (11:09)
[2022-04-15] MEDS ORDERED: HYDROmorphone INJ 1 MG/ML SYRINGE IV PRN (11:09)
[2022-04-15] MEDS ORDERED: FAMOTIDINE/PF 20 MG/2 ML VIAL IV ONE (12:14)
[2022-04-15] MEDS ORDERED: BUPIVACAINE/EPINEPHRINE 0.25% 1:200,000 30 ML VIAL ONE (12:19)
[2022-04-15] MEDS ORDERED: SCOPOLAMINE 1 MG TDSY TD ONE (12:20)
[2022-04-15] MEDS ORDERED: KETAMINE 50 MG/5 ML SYRINGE ONE (12:55)
[2022-04-15] MEDS ORDERED: ACETAMINOPHEN 1000 MG/100 ML IV IV ONE (13:16)
[2022-04-15] MEDS ORDERED: NEOSTIGMINE METHYLSULFATE 1 MG/ML 10ML VIAL ONE (14:02)
[2022-04-15] MEDS ORDERED: GLYCOPYRROLATE 0.2 MG/ML VIAL ONE (14:02)
--- NOTE | 2022-04-15 14:16 | Operative Report ---
PG Post Operative Report Pre & Post Diagnosis Operation Date: 04/15/22 08:20 Pre-Op Diagnosis: Cholecystitis Post-Op Diagnosis: Cholecystitis I identified the patient and participated in the time-out.: Yes Procedure Operation Date: 04/15/22 08:20 Actual Procedures p Laparoscopic Cholecystectomy(Not Applicable) - Sudhakar Ochoa, Surgeon Polo Palmer, Manager Database mayelin Houser Estimated Blood Loss 25 Findings Consistent with Post-Op Diagnosis Specimens gallbladder Description of Procedure Please see Dr. Ochoa's dictation. I was requested for an intraoperative consult regarding difficult access and adhesions. The patient was already intubated and several trochars already placed and the abdomen insufflated. The patient has a history of a prior open gastric bypass as well as hernia repair with mesh. I assisted placing several of the ports as well as using traction countertraction scissor lysis and small amounts of harmonic scalpel to take down adhesions in the mid abdomen in the right upper quadrant.Eventually we were able to get complete access to the right upper quadrant and epigastric region. I assisted in all parts of the cholecystectomy. Again see Dr. Ochoa complete dictation. I attest to the content of the Intraoperative Record and any orders documented therein. Any exceptions are noted below.
--- NOTE | 2022-04-15 14:22 | Post Operative Brief Note ---
PG Immediate Post Op with CF Date of Surgery April 15, 2022 Pre & Post Diagnosis Operation Date: 04/15/22 08:20 Pre-Op Diagnosis: Acute Cholecystitis Post-Op Diagnosis: Acute Cholecystitis, abdominal wall adhesions throughout the abdomen I identified the patient and participated in the time-out.: Yes Procedure Operation Date: 04/15/22 08:20 Actual Procedures p Laparoscopic Cholecystectomy, laparoscopic lysis of adhesions (Not Applicable) - Sudhakar Ochoa DO Surgeon Sudhakar Ochoa DO Pastry Cook Apprentice mayelin Houser, Ambrosio Palmer DO-second surgeon Estimated Blood Loss 25 Findings See Below Acutely inflamed dilated gallbladder consistent with acute cholecystitis Multiple adhesions to the abdominal wall and prior incisional hernia mesh repair Specimens Specimen Description: A. Gallbladder Anesthesia Type General Complications none Disposition Disposition: Recovery Room
[2022-04-15] MEDS ORDERED: SUGAMMADEX SODIUM 200 MG/2 ML VIAL IV ONE (14:28)
--- NOTE | 2022-04-15 14:28 | Operative Report ---
PG Post Operative Report Pre & Post Diagnosis Operation Date: 04/15/22 08:20 Pre-Op Diagnosis: Acute cholecystitis Post-Op Diagnosis: Acute cholecystitis, multiple adhesions abdominal wall I identified the patient and participated in the time-out.: Yes Procedure Operation Date: 04/15/22 08:20 Actual Procedures p Laparoscopic Cholecystectomy, laparoscopic lysis of adhesions (Not Applicable) - Sudhakar Ochoa DO Surgeon Sudhakar Ochoa DO Electrical Installer mayelin Houser, Ambrosio Palmer DO-second surgeon Estimated Blood Loss 25 Findings See Below Acutely inflamed dilated gallbladder consistent with acute cholecystitis Multiple adhesions to the abdominal wall and prior incisional hernia mesh repair Fluids see anesthesia record Specimens Gallbladder to pathology Drains None Anesthesia Type General Complications none Disposition Disposition: Recovery Room Indications 72-year-old female with acute cholecystitis, prior history of open Willis-en-Y gastric bypass Description of Procedure The patient was brought to the operating room and placed in the supine position with both arms extended. At this time she underwent general endotracheal anesthesia without any problems. She was given appropriate pre-operative antibiotics. Her abdomen prepped and draped in the usual sterile fashion. A timeout was called, the procedure was verified as Laparoscopic cholecystectomy, possible open, possible intra-operative cholangiogram. Surgical, nursing and anesthesia teams agreed and the procedure was begun. After injection of 0.25% Marcaine with epinephrine, a left upper quadrant incision was made and carried down to the fascia using S-retractors. The abdominal wall was then elevated with towel clamps and abdomen entered using the Veress needle confirming position using the saline drop test. Pneumoperitoneum was established. 5mm trocar was placed. Laparoscope was introduced. No injury from entry into the abdomen was visualized after inspection of the abdomen. At this time the abdomen was inspected and there were adhesions to the abdominal wall in the upper midline to the previous ventral hernia mesh. There were also adhesions in the pelvis as well as the right paramedian abdomen. At this time another 5 mm port was placed under direct visualization the left lower quadrant. Using scissors cautery adhesions were taken down in the midline so that a umbilical port could be placed. Another 5 mm umbilical port was placed under direct visualization. At this time the camera was placed into this port. Due to dense adhesions in the right abdomen and epigastrium we were unable to visualize the gallbladder at this time. The right flank appeared free of adhesions and 2 more 5 mm ports were placed at this time. Using scissors cautery we were able to free up some more adhesions in the right paramedian and midline. At this time I called my partner Ambrosio Palmer into the operating room for some assistance with taking down the remainder of the abdominal wall adhesions. He was able to free up the remainder of the midline and right paramedian adhesions to that we are able to visualize the gallbladder. At this time the gallbladder fundus was grasped and retracted cephalad. The gallbladder infundibulum was then grasped and retracted laterally. The gallbladder itself was dilated, mildly inflamed and edematous consistent with acute cholecystitis. The cystic duct and cystic artery were then identified and skeletonized. The critical view of safety was obtained. They were both then clipped twice proximally and once distally and then divided using scissors. The gallbladder was then taken off of the liver bed using electrocautery and placed in an endocatch bag and removed from the subxiphoid port. The liver bed was then inspected and no bile leak or bleeding was evident. The trocars were then removed under direct visualization and no bleeding was present. Abdomen was desufflated. The subxiphoid port was then closed using 0-Vicryl in a [id number] fashion. The skin was then closed using 4-0 Monocryl in a subcuticular fashion. Surgical glue was applied. Needle and sponge counts were correct x 2. At this time the patient was awoken from anesthesia and extubated having remained stable throughout the entire case. The patient was then transported to PACU in stable condition. The physician assistant boiler operator was present scrubbed for the entire case. She was essential in positioning, prepping draping the patient, driving the laparoscope, retraction exposure, closure of the incisions and placement the dressings. I attest to the content of the Intraoperative Record and any orders documented therein. Any exceptions are noted below.
[2022-04-15] MEDS: fentaNYL citrate 100 MCG/2 ML VIAL IV PRN ×2 (15:07→15:12)
--- NOTE | 2022-04-15 15:34 | Anesthesiology Progress Note ---
Date of Service April 15, 2022 Anesthesia Post Procedure Vital Signs Vital Signs: Temp Pulse Pulse Resp BP Pulse Ox O2 Del Method 04/15/22 15:25 36.9 C 68 23 150/74 H 94 Nasal Cannula 04/15/22 15:15 66 22 145/74 H 93 Nasal Cannula 04/15/22 15:05 65 17 159/78 H 96 Nasal Cannula 04/15/22 14:55 70 12 160/74 H 96 Nasal Cannula 04/15/22 14:45 68 21 172/78 H 96 Nasal Cannula 04/15/22 14:36 36 C L 81 19 194/100 H 95 Nasal Cannula 04/15/22 07:00 58 L 04/15/22 10:30 36.9 C 59 L 20 156/81 H 98 Room Air 04/15/22 07:58 37 C 58 L 18 143/71 H 95 Room Air 04/14/22 23:04 57 L 04/15/22 02:49 37.1 C 63 16 126/68 94 Room Air 04/14/22 22:15 36.6 C 56 L 16 158/79 H 96 Room Air 04/14/22 21:35 60 16 195/104 H 98 Room Air 04/14/22 20:01 57 L 209/101 H 98 04/14/22 18:50 63 20 183/89 H 97 Room Air O2 Flow Rate 04/15/22 15:25 2 04/15/22 15:15 2 04/15/22 15:05 2 04/15/22 14:55 4 04/15/22 14:45 4 04/15/22 14:36 4 04/15/22 07:00 04/15/22 10:30 04/15/22 07:58 04/14/22 23:04 04/15/22 02:49 04/14/22 22:15 04/14/22 21:35 04/14/22 20:01 04/14/22 18:50 Pain Intensity Medial Abdomen: Pain Intensity: 2 Transfer of Care Handoff Completed per policy Notes Mental Status: alert / awake / arousable Patient Amnestic to Procedure: Yes Nausea / Vomiting: adequately controlled Pain: adequately controlled Airway Patency, RR, SpO2: stable & adequate BP & HR: stable & adequate Hydration State: stable & adequate Anesthetic Complications: no major complications apparent and Pt Satisfied with anesthetic care
[2022-04-15] MEDS: LACTATED RINGER'S 1,000 ML IV SCH (16:00)
--- NOTE | 2022-04-15 16:29 | Hospitalist Progress Note ---
Date of Service April 15, 2022 Assessment & Plan (1) Cholecystitis: Plan: UA suggestive of acute cholecystitis with increasing LFTs No common duct stone identified on scan Appreciate surgery input and recommended Status post laparoscopic cholecystectomy Patient may need ERCP down the line Management will be as per surgery (2) Asymptomatic hypertensive urgency: Plan: Acute cholecystitis, no sepsis for now Anxiety contributory Facilitate home BP meds and titrate as needed Blood pressure seems to maintained History of gastric bypass No acute issues (3) Hyperlipidemia: Plan: Hyperlipidemia on statin Rx Plan DVT prophylaxis. SCDs for now in anticipation of surgery Full code Patient requesting updates providers. Mr. Dyllan Llanos, contact #[phone]. Admission and Anticipated Discharge Date Admission Date: April 14, 2022 Subjective 04/15/2022 The patient was seen and examined in telemetry unit She is a status post laparoscopic cholecystectomy Remains drowsy but not in pain Review of Systems Review of Systems: Unobtainable due to cognitive status Physical Exam Physical Exam: Lying in bed without any acute distress Constitutional: well developed, well nourished, + ill appearing and + obese Eyes: PERRL, conjunctivae normal, anicteric sclerae ENMT: external ear and nose normal, oropharynx normal Neck: trachea midline, no thyromegaly Respiratory: no respiratory distress Auscultation: + diminished lung sounds; no crackles Cardiovascular: Rate/Rhythm: regular rate and regular rhythm; not tachycardic Heart Sounds: normal S1 and normal S2; no murmur Extremities: no edema Gastrointestinal (Abdomen): Inspection/Auscultation: normal bowel sounds; abdomen not distended Percussion/Palpation: + abdomen tender and abdomen soft Musculoskeletal: No acute arthritis involving any joint Neurologic: Alert and awake, drowsy from the effect of anesthetics Lymphatic: no cervical or axillary lymphadenopathy Results & Data Results & Data ([facility]) Vital Signs (Past 12 Hours) Vital Signs Temp Pulse Pulse Resp BP Pulse Ox O2 Del Method 04/15/22 16:13 37 C 68 12 148/79 H 93 Nasal Cannula 04/15/22 16:01 37 C 65 12 141/72 H 90 Nasal Cannula 04/15/22 15:35 65 22 152/74 H 93 Nasal Cannula 04/15/22 15:25 36.9 C 68 23 150/74 H 94 Nasal Cannula 04/15/22 15:15 66 22 145/74 H 93 Nasal Cannula 04/15/22 15:05 65 17 159/78 H 96 Nasal Cannula 04/15/22 14:55 70 12 160/74 H 96 Nasal Cannula 04/15/22 14:45 68 21 172/78 H 96 Nasal Cannula 04/15/22 14:36 36 C L 81 19 194/100 H 95 Nasal Cannula 04/15/22 07:00 58 L 04/15/22 10:30 36.9 C 59 L 20 156/81 H 98 Room Air 04/15/22 07:58 37 C 58 L 18 143/71 H 95 Room Air O2 Flow Rate 04/15/22 16:13 2 04/15/22 16:01 2 04/15/22 15:35 2 04/15/22 15:25 2 04/15/22 15:15 2 04/15/22 15:05 2 04/15/22 14:55 4 04/15/22 14:45 4 04/15/22 14:36 4 04/15/22 07:00 04/15/22 10:30 04/15/22 07:58 Laboratory Results Short CBC 04/15/22 Range/Units 06:02 WBC 9.33 (4.8-10.8) K/ul Hgb 11.0 L (12.0-16.0) g/dl Hct 35.7 (34.1-44.9) % Plt Count 241 (130-400) K/uL BMP 04/15/22 06:02 Sodium 139 Potassium 4.2 Chloride 104 Carbon Dioxide 30 BUN 13 Creatinine 0.87 Glucose 110 H Calcium 8.6 Liver Function 04/15/22 Range/Units 06:02 Total Bilirubin 0.5 (0.2-1.0) mg/dl AST 321 H (13-39) U/L ALT 294 H (7-52) U/L Alkaline Phosphatase 151 H (34-104) U/L Albumin 3.7 (3.4-5.0) gm/dl Medications Administered Current Inpatient Medications Acetaminophen (Acetaminophen 325 Mg Tab) 650 mg PO Q4H PRN PRN Reason: Mild Pain Stop: 05/15/22 15:49 Alprazolam (Alprazolam 0.25 Mg Tablet) 0.25 mg PO TID PRN PRN Reason: Anxiety Stop: 05/14/22 21:48 Promethazine HCl 12.5 mg/ (Sodium Chloride) 50.5 mls @ 202 mls/hr IV Q6H PRN PRN Reason: Nausea And Vomiting Stop: 05/14/22 20:02 Last Infusion: 04/15/22 00:38 Dose: Infused Piperacillin Sod/Tazobactam (Sod 3.375 gm/ Dextrose) 115 mls @ 28.75 mls/hr IV Q8H [facility]; Protocol Stop: 04/25/22 01:59 Last Infusion: 04/15/22 15:36 Dose: Infused Lactated Ringer's (Lr) 1,000 mls @ 80 mls/hr IV .[id number] [facility] Stop: 05/15/22 15:49 Last Admin: 04/15/22 16:00 Dose: 80 mls/hr Losartan Potassium (Losartan Potassium 50 Mg Tab) 100 mg PO QAM [facility] Stop: 05/15/22 08:59 Last Admin: 04/15/22 08:59 Dose: Not Given Metoprolol Succinate (Metoprolol Succ 25mg Ext Rel Tab) 25 mg PO BID [facility] Stop: 05/15/22 08:59 Last Admin: 04/15/22 08:59 Dose: Not Given Miscellaneous (Solifenacin 10 Mg - Order Awaiting Action) 1 each N/A QS [facility] Stop: 05/15/22 00:00 Last Admin: 04/15/22 08:59 Dose: Not Given Morphine Sulfate (Morphine Sulfate 2 Mg/Ml Carp) 2 mg IV Q2H PRN PRN Reason: moderatePain Stop: 04/29/22 15:49 Oxycodone HCl (Oxycodone Hcl Ir 5 Mg Tab (Immediate Release)) 5 mg PO Q4H PRN PRN Reason: Pain Stop: 04/28/22 20:02 Last Admin: 04/14/22 21:07 Dose: 5 mg Oxycodone HCl (Oxycodone Hcl Ir 5 Mg Tab (Immediate Release)) 10 mg PO Q4H PRN PRN Reason: Severe Pain Stop: 04/29/22 15:49 Rosuvastatin Calcium (Rosuvastatin Calcium 5 Mg Tab) 5 mg PO QPM [facility] Stop: 05/15/22 20:59 Sertraline HCl (Sertraline Hcl 100 Mg Tablet) 100 mg PO BID [facility] Stop: 05/14/22 21:48 Last Admin: 04/15/22 08:59 Dose: Not Given
[2022-04-15] MEDS: oxyCODONE HCL IR 5 MG TAB (IMMEDIATE RELEASE) PO PRN ×2 (17:17→21:45)
[2022-04-15] MEDS: ROSUVASTATIN CALCIUM 5 MG TAB PO SCH (21:46)
[2022-04-16] MEDS: PIPERACILLIN/TAZOBACTAM 3.375 GM in DEXTROSE 5% 100 ML IV SCH ×3 (02:27→17:30)
[2022-04-16] MEDS: oxyCODONE HCL IR 5 MG TAB (IMMEDIATE RELEASE) PO PRN ×4 (04:43→23:39)
[2022-04-16] MEDS: LACTATED RINGER'S 1,000 ML IV SCH (05:03)
[2022-04-16] MEDS ORDERED: ALUMINUM/MAGNESIUM/SIMETH (MAALOX MAX) 30 ML UDC PO STA (05:18)
[2022-04-16 06:00] LABS: Hematocrit (blood only) 35.9 % (34.1-44.9); Hemoglobin 10.8 g/dl (12.0-16.0); Mean Corpuscular Hemoglobin 23.2 pg (25.0-34.0); Mean Corpuscular Hgb Conc 30.1 g/dL (32.0-36.0); Mean Corpuscular Volume 77.2 fL (80.0-100.0); Mean Platelet Volume 9.8 fL (9.4-12.3); Platelet Count 273 K/uL (130-400); RDW Coefficient of Variation 18.7 % (11.5-14.5); Red Blood Count 4.65 M/uL (3.93-5.22); White Blood Count 12.31 K/ul (4.8-10.8)
--- NOTE | 2022-04-16 06:14 | Electrocardiogram Report ---
Test Reason : Blood Pressure : / mmHG Vent. Rate : 058 BPM Atrial Rate : 058 BPM P-R Int : 120 ms QRS Dur : 084 ms QT Int : 414 ms P-R-T Axes : -26 057 051 degrees QTc Int : 406 ms Sinus bradycardia Otherwise normal ECG When compared with ECG of 06-JAN-2022 08:27, No significant change was found Confirmed by Madhu Bauer ([id number]) on 04/16/2022 6:13:37 AM Referred By: SELF Confirmed By:Madhu Bauer
[2022-04-16 06:24] LABS: Basophils # (auto) 0.02 K/uL (0-0.2); Basophils % (auto) 0.2 %; Echinocytes 1+; Immature Granulocytes # (auto) 0.03 K/uL (0.00-0.02); Immature Granulocytes % (auto) 0.2 %; Lymphocytes # (auto) 0.61 K/uL (1.2-3.4); Monocytes # (auto) 0.82 K/uL (0.24-0.82); Monocytes % (auto) 6.7 %; Neutrophils # (auto) 10.83 K/uL (1.4-6.5); Neutrophils % (auto) 87.9 %; Ovalocytes 1+; Polychromasia 1+
[2022-04-16 06:25] LABS: Albumin Level 3.6 gm/dl (3.4-5.0); Bilirubin Direct 0.1 mg/dl (0-0.2); Bilirubin,Total 0.6 mg/dl (0.2-1.0); Calcium 8.4 mg/dl (8.5-10.1); Potassium 4.1 mmol/L (3.5-5.1)
[2022-04-16 06:31] LABS: BUN Creatinine Ratio 12.6 (10-20); Creatinine Clr Calc Pharmacy 58.7 ml/min; Est GFR (African American) 69.8 ml/min; Est GFR (Non-African American) 60.3 ml/min; Total Protein 6.1 gm/dl (6.0-8.3)
[2022-04-16] MEDS: MoRPHine SULFATE 2 MG/ML CARP IV PRN ×2 (08:06→15:44)
[2022-04-16] MEDS: SERTRALINE HCL 100 MG TABLET PO SCH ×2 (08:12→19:54)
[2022-04-16] MEDS: ACETAMINOPHEN 325 MG TAB PO PRN ×2 (09:34→19:53)
[2022-04-16] MEDS: LOSARTAN POTASSIUM 50 MG TAB PO SCH (09:45)
[2022-04-16] MEDS: METOPROLOL SUCC 25MG EXT REL TAB PO SCH ×2 (09:53→22:31)
--- NOTE | 2022-04-16 11:30 | Surgery Progress Note ---
Date of Service April 16, 2022 Assessment & Plan (1) Cholecystitis: Plan: She is doing well postoperative day 1 laparoscopic cholecystectomy, laparoscopic lysis of adhesions She is tolerating clear liquids, can advance as tolerated, can stop her IV fluids if she is taking adequate p.o. She is on some oxygen at this point, will try to wean Encourage ambulation and incentive spirometry We will continue to follow Admission and Anticipated Discharge Date Admission Date: April 14, 2022 Subjective Patient seen and examined. Has minimal pain. Denies any nausea or vomiting. She is tolerating clear liquids. Physical Exam Constitutional: WD/WN, vitals as above Gastrointestinal (Abdomen): Soft, appropriately tender to palpation, dressings clean dry and intact Results & Data ([facility]) Vital Signs (Past 12 Hours) Vital Signs Temp Pulse Resp BP BP Pulse Ox O2 Del Method 04/16/22 10:35 37.0 C 87 17 98/62 L 93 Nasal Cannula 04/16/22 07:40 36.8 C 87 18 96/63 L 90 Nasal Cannula 04/16/22 04:15 37.2 C 77 17 124/78 94 Nasal Cannula O2 Flow Rate 04/16/22 10:35 2 04/16/22 07:40 90 04/16/22 04:15 PG Care Time/CCT Total # of Minutes Spent Total Time Spent with Patient: Total time spent is greater than 50% in coordination of care (as documented) at patient's floor/unit and/or counseling patient: Coding Level of Care Code 21808 Post Operative Follow-Up Diagnoses Cholecystitis K81.9
--- NOTE | 2022-04-16 14:13 | Hospitalist Progress Note ---
Date of Service April 16, 2022 Assessment & Plan (1) Cholecystitis: Plan: UA suggestive of acute cholecystitis with increasing LFTs No common duct stone identified on scan Appreciate surgery input and recommended Status post laparoscopic cholecystectomy Patient may need ERCP down the line Management will be as per surgery Clinically better today but will need to stay another day Regular diet started by the surgical team She is ambulating in the room without much difficulty Likely discharge tomorrow Increasing LFTs Noted prior to the surgery and worse following surgery Expected GI is aware and will have outpatient endoscopy on Wednesday at [facility] Likely discharge tomorrow (2) Asymptomatic hypertensive urgency: Plan: Acute cholecystitis, no sepsis for now Anxiety contributory Facilitate home BP meds and titrate as needed Blood pressure seems to maintained Blood pressure remains on the lower side at 98/62 History of gastric bypass No acute issues (3) Hyperlipidemia: Plan: Hyperlipidemia on statin Rx Plan DVT prophylaxis. SCDs for now in anticipation of surgery Full code Patient requesting updates providers. Mr. Dyllan Llanos, contact #[phone]. Admission and Anticipated Discharge Date Admission Date: April 14, 2022 Subjective 04/15/2022 The patient was seen and examined in telemetry unit She is a status post laparoscopic cholecystectomy Remains drowsy but not in pain 04/16/2022 Patient was seen and examined in telemetry unit She has been much better today with minimal pain and no shortness of breath Confusion is resolved Denies any nausea and or vomiting Review of Systems Review of Systems: As per HPI, all other systems reviewed and negative Physical Exam Physical Exam: Sitting on a chair without any acute distress Constitutional: well developed, well nourished, + ill appearing and + obese Eyes: PERRL, conjunctivae normal, anicteric sclerae ENMT: external ear and nose normal, oropharynx normal Neck: trachea midline, no thyromegaly Respiratory: no respiratory distress Auscultation: + diminished lung sounds; no crackles Cardiovascular: Rate/Rhythm: regular rate and regular rhythm; not tachycardic Heart Sounds: normal S1 and normal S2; no murmur Extremities: no edema Gastrointestinal (Abdomen): Inspection/Auscultation: normal bowel sounds; abdomen not distended Percussion/Palpation: + abdomen tender and abdomen soft Musculoskeletal: No acute arthritis Neurologic: Alert, awake and oriented x3. Generally weak but no focal sensory or no motor deficit appreciated Lymphatic: no cervical or axillary lymphadenopathy Results & Data Results & Data ([facility]) Vital Signs (Past 12 Hours) Vital Signs Temp Pulse Pulse Resp BP BP Pulse Ox 04/16/22 08:00 04/16/22 08:00 87 04/16/22 10:35 37.0 C 87 17 98/62 L 93 04/16/22 07:40 36.8 C 87 18 96/63 L 90 04/16/22 04:15 37.2 C 77 17 124/78 94 O2 Del Method O2 Flow Rate 04/16/22 08:00 Nasal Cannula 2 04/16/22 08:00 04/16/22 10:35 Nasal Cannula 2 04/16/22 07:40 Nasal Cannula 90 04/16/22 04:15 Nasal Cannula Laboratory Results Short CBC 04/16/22 Range/Units 05:25 WBC 12.31 H (4.8-10.8) K/ul Hgb 10.8 L (12.0-16.0) g/dl Hct 35.9 (34.1-44.9) % Plt Count 273 (130-400) K/uL BMP 04/16/22 05:25 Sodium 136 Potassium 4.1 Chloride 102 Carbon Dioxide 27 BUN 12 Creatinine 0.95 Glucose 154 H Calcium 8.4 L Liver Function 04/16/22 Range/Units 05:25 Total Bilirubin 0.6 (0.2-1.0) mg/dl Direct Bilirubin 0.1 (0-0.2) mg/dl AST 268 H (13-39) U/L ALT 314 H (7-52) U/L Alkaline Phosphatase 122 H (34-104) U/L Albumin 3.6 (3.4-5.0) gm/dl Medications Administered Current Inpatient Medications Acetaminophen (Acetaminophen 325 Mg Tab) 650 mg PO Q4H PRN PRN Reason: Mild Pain Stop: 05/15/22 15:49 Last Admin: 04/16/22 09:34 Dose: 650 mg Alprazolam (Alprazolam 0.25 Mg Tablet) 0.25 mg PO TID PRN PRN Reason: Anxiety Stop: 05/14/22 21:48 Promethazine HCl 12.5 mg/ (Sodium Chloride) 50.5 mls @ 202 mls/hr IV Q6H PRN PRN Reason: Nausea And Vomiting Stop: 05/14/22 20:02 Last Infusion: 04/15/22 00:38 Dose: Infused Piperacillin Sod/Tazobactam (Sod 3.375 gm/ Dextrose) 115 mls @ 28.75 mls/hr IV Q8H [facility]; Protocol Stop: 04/25/22 01:59 Last Admin: 04/16/22 11:26 Dose: 28.8 mls/hr Losartan Potassium (Losartan Potassium 50 Mg Tab) 100 mg PO QAM [facility] Stop: 05/15/22 08:59 Last Admin: 04/16/22 09:45 Dose: Not Given Metoprolol Succinate (Metoprolol Succ 25mg Ext Rel Tab) 25 mg PO BID [facility] Stop: 05/15/22 08:59 Last Admin: 04/16/22 09:53 Dose: Not Given Morphine Sulfate (Morphine Sulfate 2 Mg/Ml Carp) 2 mg IV Q2H PRN PRN Reason: moderatePain Stop: 04/29/22 15:49 Last Admin: 04/16/22 08:06 Dose: 2 mg Oxycodone HCl (Oxycodone Hcl Ir 5 Mg Tab (Immediate Release)) 5 mg PO Q4H PRN PRN Reason: Pain Stop: 04/28/22 20:02 Last Admin: 04/16/22 11:37 Dose: 5 mg Oxycodone HCl (Oxycodone Hcl Ir 5 Mg Tab (Immediate Release)) 10 mg PO Q4H PRN PRN Reason: Severe Pain Stop: 04/29/22 15:49 Last Admin: 04/16/22 04:43 Dose: 10 mg Rosuvastatin Calcium (Rosuvastatin Calcium 5 Mg Tab) 5 mg PO QPM [facility] Stop: 05/15/22 20:59 Last Admin: 04/15/22 21:46 Dose: 5 mg Sertraline HCl (Sertraline Hcl 100 Mg Tablet) 100 mg PO BID [facility] Stop: 05/14/22 21:48 Last Admin: 04/16/22 08:12 Dose: 100 mg
[2022-04-16] MEDS: ROSUVASTATIN CALCIUM 5 MG TAB PO SCH (19:54)
[2022-04-17] MEDS: PIPERACILLIN/TAZOBACTAM 3.375 GM in DEXTROSE 5% 100 ML IV SCH ×3 (02:23→17:06)
[2022-04-17] MEDS: oxyCODONE HCL IR 5 MG TAB (IMMEDIATE RELEASE) PO PRN ×2 (06:01→10:21)
[2022-04-17 06:03] LABS: Base Excess ABG 4.2 mEq/L (-9-1.8); HCO3 ABG 27 mmol/L (19-24); PCO2 ABG 35 mmHg (35-46); PO2 ABG 67 mmHg (80-95)
[2022-04-17 06:04] LABS: Basophils # (auto) 0.02 K/uL (0-0.2); Basophils % (auto) 0.2 %; Eosinophils # (auto) 0.03 K/uL (0-0.50); Eosinophils % (auto) 0.3 %; Hematocrit (blood only) 30.3 % (34.1-44.9); Hemoglobin 9.4 g/dl (12.0-16.0); Immature Granulocytes # (auto) 0.05 K/uL (0.00-0.02); Immature Granulocytes % (auto) 0.4 %; Lymphocytes # (auto) 0.96 K/uL (1.2-3.4); Lymphocytes % (auto) 8.4 %; Mean Corpuscular Hemoglobin 23.3 pg (25.0-34.0); Mean Platelet Volume 9.6 fL (9.4-12.3); Monocytes # (auto) 0.52 K/uL (0.24-0.82); Monocytes % (auto) 4.5 %; Neutrophils % (auto) 86.2 %; Platelet Count 204 K/uL (130-400); RDW Coefficient of Variation 18.4 % (11.5-14.5); RDW Standard Deviation 49.9 fL (36.4-46.3); Red Blood Count 4.04 M/uL (3.93-5.22); White Blood Count 11.48 K/ul (4.8-10.8)
[2022-04-17 06:06] LABS: Allen Test Pos (Pos)
[2022-04-17 06:27] LABS: Albumin Level 3.4 gm/dl (3.4-5.0); Bilirubin,Total 0.7 mg/dl (0.2-1.0); Calcium 8.4 mg/dl (8.5-10.1); Potassium 3.9 mmol/L (3.5-5.1)
[2022-04-17 06:33] LABS: Albumin Globulin Ratio 1.4 (0.9-2); Creatinine Clr Calc Pharmacy 66.2 ml/min; Est GFR (African American) 79.9 ml/min; Est GFR (Non-African American) 68.9 ml/min; Globulin 2.5 gm/dl (2.5-4.0); Total Protein 5.9 gm/dl (6.0-8.3)
[2022-04-17] MEDS ORDERED: FUROSEMIDE 40 MG/4 ML VIAL IV ONE (07:15)
[2022-04-17] MEDS: SERTRALINE HCL 100 MG TABLET PO SCH ×2 (09:01→20:25)
[2022-04-17] MEDS: METOPROLOL SUCC 25MG EXT REL TAB PO SCH ×2 (09:01→20:25)
[2022-04-17] MEDS: LOSARTAN POTASSIUM 50 MG TAB PO SCH (09:02)
--- NOTE | 2022-04-17 10:34 | Communication Note ---
Date of Service: April 17, 2022 GI asked to re-evaluate given downtrending LFTs. Discussed with biliary staff, general surgery team. She is hesitant to travel to [place] for EDGE procedure. Will arrange STAT MRCP. If negative, can cancel EDGE and trend LFTs. If LFTs remain elevated will need eventual OP EDGE. Or if MRCP positive, will need to keep EDGE for Wednesday. I have discussed the patient's management with the advanced practitioner. Please refer to the nurse practitioner's note for the documented findings and plan of care. MRCP is negative for choledocholithiasis and LFTs are improving, she likely passed the stone. Will cancel her upcoming EDGE.
--- NOTE | 2022-04-17 11:02 | Surgery Progress Note ---
Date of Service April 17, 2022 Assessment & Plan (1) Cholecystitis: Plan: patient is doing well overall pain present but improving tolerating a regular diet lfts downtrending Gi to re-evaluate if she requires f/u for Edge procedure wednesday, obtaining MRCP to eval further okay to discharge from our standpoint when okay with medicine Admission and Anticipated Discharge Date Admission Date: April 14, 2022 Supervising Physician Co-Signing Physician Notes I personally saw and evaluated the patient with Benita Houser PA-C and agree with the assessment and plan. 72-year-old female postoperative day 2 laparoscopic cholecystectomy and laparoscopic lysis of adhesions She is tolerating a diet without nausea or vomiting Her pain is controlled Her LFTs are improving She is stable to be discharged from a surgical standpoint once okay with GI Subjective patient feeling well. some expected post op pain. reports mild nausea without emesis. she is tolerating a regular diet. Physical Exam Physical Exam: awake/alert, sitting up in chair Respiratory: on supplemental O2 Gastrointestinal (Abdomen): Inspection/Auscultation: + abdominal surgical incision (surgical dressings c/d/i) Percussion/Palpation: abdomen soft Results & Data ([facility]) Vital Signs (Past 12 Hours) Vital Signs Temp Pulse Resp BP Pulse Ox O2 Del Method O2 Flow Rate 04/17/22 10:42 36.8 C 83 18 106/69 96 Nasal Cannula 2 04/17/22 09:10 Nasal Cannula 4 04/17/22 08:44 118/74 04/17/22 07:35 36.8 C 84 22 123/76 94 Nasal Cannula 4 04/17/22 02:59 36.4 C L 85 16 109/70 94 Nasal Cannula 04/17/22 02:32 91 High Flow Nasal Cannula 4 04/17/22 02:23 77 L Room Air 04/16/22 23:39 Nasal Cannula 2 04/16/22 23:39 36.8 C 80 22 118/73 91 High Flow Nasal Cannula 2 PG Care Time/CCT Total # of Minutes Spent Total Time Spent with Patient: Total time spent is greater than 50% in coordination of care (as documented) at patient's floor/unit and/or counseling patient: Coding Level of Care Code None Diagnoses Cholecystitis K81.9
--- NOTE | 2022-04-17 12:40 | XRay Report ---
XR chest 1V portable CLINICAL HISTORY: sob TECHNIQUE: Single frontal radiograph of the chest was obtained. Comparison: Comparison is made to chest radiograph 04/14/2022 FINDINGS: No lines and tubes are seen. The cardiomediastinal silhouette is stable. Atelectasis is at the right lung base. No evidence of pleural effusion or pneumothorax. IMPRESSION: No acute chest disease. ACT 112: Negative or not required by law. Electronically signed by: Marco Antonio Banuelos M.D. 04/17/2022 12:39 PM
--- NOTE | 2022-04-17 14:17 | Magnetic Resonance Report ---
MR MRCP CLINICAL HISTORY: s/p ccy, dre-dre, elevated LFTS, r/o cbd stone TECHNIQUE: Multiplanar multisequence MR images of the abdomen were obtained, as per MRCP protocol. . COMPARISON: Comparison is made to CT abdomen pelvis 04/14/2021 FINDINGS: Lower chest: Trace right pleural effusion with associated atelectasis or pneumonia. Liver: Unremarkable. No focal lesions are seen. Gallbladder and biliary tree: Patient is status post cholecystomy. Free fluid is noted in the gallbla dder fossa. Common bile duct measures up to 8 mm in diameter. No filling defects are seen. Pancreas: Unremarkable, no focal lesions. Spleen: Unremarkable. Adrenals: Unremarkable. Kidneys and ureters: Perinephric stranding is seen. An exophytic cyst arising from the left kidney is seen. Bowel: Unremarkable. Lymph nodes Retroperitoneal: Unremarkable. Mesenteric: Unremarkable. Peritoneum: A small amount of fat stranding is noted. Vessels: Unremarkable. Abdominal wall: Soft tissue edema is seen in the bilateral flanks. Bones: Unremarkable. IMPRESSION: Patient is status post cholecystectomy with expected peritoneal fat stranding. No filling defects are seen to suggest biliary ductal obstruction. ACT 112: Negative or not required by law. Electronically signed by: Marco Antonio Banuelos M.D. 04/17/2022 2:15 PM
--- NOTE | 2022-04-17 15:58 | Hospitalist Progress Note ---
Date of Service April 17, 2022 Assessment & Plan (1) Cholecystitis: Plan: UA suggestive of acute cholecystitis with increasing LFTs No common duct stone identified on scan Appreciate surgery input and recommended Status post laparoscopic cholecystectomy Patient may need ERCP down the line Management will be as per surgery Clinically better today but will need to stay another day Regular diet started by the surgical team She is ambulating in the room without much difficulty Noted to be short of breath with desaturation this morning Received a dose of Lasix and was advised to use spirometer Chest x-ray did not show any CHF but atelectasis If the condition improves likely discharge tomorrow but may need to a step O2 saturation test Will discontinue antibiotic at 10 AM tomorrow Increasing LFTs Noted prior to the surgery and worse following surgery Expected GI is aware and will have outpatient endoscopy on Wednesday at [facility] LFTs are much better-MRCP did not show any evidence of stones ERCP has been canceled (2) Asymptomatic hypertensive urgency: Plan: Acute cholecystitis, no sepsis for now Anxiety contributory Facilitate home BP meds and titrate as needed Blood pressure seems to maintained Blood pressure remains on the lower side at 98/62 Blood pressure remains stable History of gastric bypass No acute issues (3) Hyperlipidemia: Plan: Hyperlipidemia on statin Rx Plan DVT prophylaxis. SCDs for now in anticipation of surgery Full code Patient requesting updates providers. Mr. Dyllan Llanos, contact #[phone]. Admission and Anticipated Discharge Date Admission Date: April 14, 2022 Subjective 04/15/2022 The patient was seen and examined in telemetry unit She is a status post laparoscopic cholecystectomy Remains drowsy but not in pain 04/16/2022 Patient was seen and examined in telemetry unit She has been much better today with minimal pain and no shortness of breath Confusion is resolved Denies any nausea and or vomiting 04/17/2022 The patient was seen and examined in telemetry unit She was noted to have short of breath with low saturation this morning Chest x-ray did not show atelectasis Denies any chest pain and/or palpitation, no abdominal pain nausea or vomiting Review of Systems Review of Systems: As per HPI, all other systems reviewed and negative Physical Exam Physical Exam: Sitting on a chair without any acute distress Constitutional: well developed, well nourished, + ill appearing and + obese Eyes: PERRL, conjunctivae normal, anicteric sclerae ENMT: external ear and nose normal, oropharynx normal Neck: trachea midline, no thyromegaly Respiratory: no respiratory distress Auscultation: + diminished lung sounds; no crackles Cardiovascular: Rate/Rhythm: regular rate and regular rhythm; not tachycardic Heart Sounds: normal S1 and normal S2; no murmur Extremities: no edema Gastrointestinal (Abdomen): Inspection/Auscultation: normal bowel sounds; abdomen not distended Percussion/Palpation: + abdomen tender and abdomen soft Musculoskeletal: No acute arthritis involving any joint Neurologic: normal touch/pain/proprioception and moves all extremities; no focal motor deficits Psychiatric: A+Ox3, euthymic affect Lymphatic: no cervical or axillary lymphadenopathy Results & Data Results & Data ([facility]) Vital Signs (Past 12 Hours) Vital Signs Temp Pulse Resp BP Pulse Ox O2 Del Method O2 Flow Rate 04/17/22 15:23 36.8 C 79 16 111/70 97 Nasal Cannula 4 04/17/22 10:42 36.8 C 83 18 106/69 96 Nasal Cannula 2 04/17/22 09:10 Nasal Cannula 4 04/17/22 08:44 118/74 04/17/22 07:35 36.8 C 84 22 123/76 94 Nasal Cannula 4 Laboratory Results Short CBC 04/17/22 Range/Units 05:38 WBC 11.48 H (4.8-10.8) K/ul Hgb 9.4 L (12.0-16.0) g/dl Hct 30.3 L (34.1-44.9) % Plt Count 204 (130-400) K/uL BMP 04/17/22 05:38 Sodium 133 L Potassium 3.9 Chloride 98 Carbon Dioxide 28 BUN 17 Creatinine 0.85 Glucose 120 H Calcium 8.4 L Liver Function 04/17/22 Range/Units 05:38 Total Bilirubin 0.7 (0.2-1.0) mg/dl AST 118 H (13-39) U/L ALT 215 H (7-52) U/L Alkaline Phosphatase 103 (34-104) U/L Albumin 3.4 (3.4-5.0) gm/dl Medications Administered Current Inpatient Medications Acetaminophen (Acetaminophen 325 Mg Tab) 650 mg PO Q4H PRN PRN Reason: Mild Pain Stop: 05/15/22 15:49 Last Admin: 04/16/22 19:53 Dose: 650 mg Alprazolam (Alprazolam 0.25 Mg Tablet) 0.25 mg PO TID PRN PRN Reason: Anxiety Stop: 05/14/22 21:48 Promethazine HCl 12.5 mg/ (Sodium Chloride) 50.5 mls @ 202 mls/hr IV Q6H PRN PRN Reason: Nausea And Vomiting Stop: 05/14/22 20:02 Last Infusion: 04/15/22 00:38 Dose: Infused Piperacillin Sod/Tazobactam (Sod 3.375 gm/ Dextrose) 115 mls @ 28.75 mls/hr IV Q8H [facility]; Protocol Stop: 04/18/22 14:00 Last Infusion: 04/17/22 14:16 Dose: Infused Losartan Potassium (Losartan Potassium 50 Mg Tab) 100 mg PO QAM [facility] Stop: 05/15/22 08:59 Last Admin: 04/17/22 09:02 Dose: 100 mg Metoprolol Succinate (Metoprolol Succ 25mg Ext Rel Tab) 25 mg PO BID [facility] Stop: 05/15/22 08:59 Last Admin: 04/17/22 09:01 Dose: 25 mg Morphine Sulfate (Morphine Sulfate 2 Mg/Ml Carp) 2 mg IV Q2H PRN PRN Reason: moderatePain Stop: 04/29/22 15:49 Last Admin: 04/16/22 15:44 Dose: 2 mg Oxycodone HCl (Oxycodone Hcl Ir 5 Mg Tab (Immediate Release)) 5 mg PO Q4H PRN PRN Reason: Pain Stop: 04/28/22 20:02 Last Admin: 04/16/22 23:39 Dose: 5 mg Oxycodone HCl (Oxycodone Hcl Ir 5 Mg Tab (Immediate Release)) 10 mg PO Q4H PRN PRN Reason: Severe Pain Stop: 04/29/22 15:49 Last Admin: 04/17/22 10:21 Dose: 10 mg Rosuvastatin Calcium (Rosuvastatin Calcium 5 Mg Tab) 5 mg PO QPM [facility] Stop: 05/15/22 20:59 Last Admin: 04/16/22 19:54 Dose: 5 mg Sertraline HCl (Sertraline Hcl 100 Mg Tablet) 100 mg PO BID [facility] Stop: 05/14/22 21:48 Last Admin: 04/17/22 09:01 Dose: 100 mg
[2022-04-17] MEDS ORDERED: ALBUTEROL 0.083% NEBU SOLN 3 ML VIAL NEB PRN (18:41)
[2022-04-17] MEDS: ACETAMINOPHEN 325 MG TAB PO PRN (19:49)
[2022-04-17] MEDS: ROSUVASTATIN CALCIUM 5 MG TAB PO SCH (20:25)
[2022-04-18] MEDS: PIPERACILLIN/TAZOBACTAM 3.375 GM in DEXTROSE 5% 100 ML IV SCH ×2 (02:13→09:20)
[2022-04-18 04:47] LABS: Appearance Urine Clear (Clear); Bacteria Urine Automated Negative (Negative); Bilirubin Urine Negative (Negative); Blood Urine Trace (Negative); Color Urine Yellow; Epithelial Cell Urine Auto >30 /lpf (0-5); Glucose Urine UA Negative (Negative); Ketones Urine Negative (Negative); Leukocyte Esterase Urine Negative (Negative); Nitrite Urine Negative (Negative); Protein Urine 1+ (Negative); RBC Urine Automated 0-4 /hpf (0-4); Specific Gravity Urine 1.011 (1.000-1.030); Urobilinogen Urine Negative (Negative); pH Urine 5.5 (4.5-7.5)
[2022-04-18 06:05] LABS: Basophils # (auto) 0.01 K/uL (0-0.2); Basophils % (auto) 0.1 %; Eosinophils # (auto) 0.23 K/uL (0-0.50); Eosinophils % (auto) 2.3 %; Hematocrit (blood only) 30.4 % (34.1-44.9); Hemoglobin 9.3 g/dl (12.0-16.0); Immature Granulocytes # (auto) 0.04 K/uL (0.00-0.02); Immature Granulocytes % (auto) 0.4 %; Lymphocytes # (auto) 0.97 K/uL (1.2-3.4); Lymphocytes % (auto) 9.9 %; Mean Corpuscular Hemoglobin 23.1 pg (25.0-34.0); Mean Corpuscular Hgb Conc 30.6 g/dL (32.0-36.0); Mean Corpuscular Volume 75.4 fL (80.0-100.0); Mean Platelet Volume 9.3 fL (9.4-12.3); Monocytes # (auto) 0.62 K/uL (0.24-0.82); Monocytes % (auto) 6.3 %; Neutrophils # (auto) 7.97 K/uL (1.4-6.5); Platelet Count 222 K/uL (130-400); RDW Coefficient of Variation 18.4 % (11.5-14.5); RDW Standard Deviation 50.7 fL (36.4-46.3); Red Blood Count 4.03 M/uL (3.93-5.22); White Blood Count 9.84 K/ul (4.8-10.8)
[2022-04-18 06:42] LABS: Calcium 8.4 mg/dl (8.5-10.1); Potassium 3.6 mmol/L (3.5-5.1)
[2022-04-18 06:48] LABS: BUN Creatinine Ratio 22.2 (10-20); Creatinine Clr Calc Pharmacy 68.6 ml/min; Est GFR (African American) 84.7 ml/min; Est GFR (Non-African American) 73.1 ml/min
[2022-04-18] MEDS: LOSARTAN POTASSIUM 50 MG TAB PO SCH (09:21)
[2022-04-18] MEDS: METOPROLOL SUCC 25MG EXT REL TAB PO SCH ×2 (09:21→20:19)
[2022-04-18] MEDS: SERTRALINE HCL 100 MG TABLET PO SCH ×2 (09:21→20:19)
[2022-04-18] MEDS: ALPRAZolam 0.25 MG TABLET PO PRN ×2 (09:21→23:31)
[2022-04-18] MEDS: oxyCODONE HCL IR 5 MG TAB (IMMEDIATE RELEASE) PO PRN ×2 (09:21→23:31)
--- NOTE | 2022-04-18 12:55 | Surgery Progress Note ---
Date of Service April 18, 2022 Assessment & Plan (1) Cholecystitis: Plan: Myesha is POD #3 s/p Lab Carmen with GERTRUDE with Dr. Ochoa. She is doing well. Her pain is controlled. She has been tolerating a regular diet without issue. Abdominal incisions are healing well. From a surgical standpoint she is ok for discharge to home with follow-up in General Surgery clinic with Dr. Ochoa in 1-2 weeks. Discharge instructions were reviewed with patient by Dr. Wood. Return precautions reviewed. All questions answered. Discharge per primary team. Patient seen and examined with Dr. Wood. Admission and Anticipated Discharge Date Admission Date: April 14, 2022 Supervising Physician Co-Signing Physician Notes Patient seen examined, agree with above. POD #3, okay for discharge. Return precautions given, wound care instructions and activity restrictions reviewed. Follow-up in 2 weeks Subjective Myesha is resting comfortably in bed, is at bedside. She reports that she is doing well. She continues to have some discomfort since surgery. She reports that this continues to get better. She denies any new concerns or complaints. Review of Systems Constitutional: no fever and no chills Respiratory: no cough Gastrointestinal: + abdominal pain (appropriately tender at incision sites. ); no nausea and no vomiting Results & Data ([facility]) Vital Signs (Past 12 Hours) Vital Signs Temp Pulse Pulse Pulse Pulse Pulse Resp 04/18/22 11:44 37.2 C 72 18 04/18/22 10:42 04/18/22 10:40 72 04/18/22 09:42 103 H 98 H 90 04/18/22 07:53 37.1 C 67 18 04/18/22 02:15 36.6 C 80 20 Resp Resp Resp BP Pulse Ox Pulse Ox Pulse Ox 04/18/22 11:44 121/73 91 04/18/22 10:42 04/18/22 10:40 04/18/22 09:42 20 20 18 91 93 04/18/22 07:53 135/86 95 04/18/22 02:15 127/73 94 Pulse Ox O2 Del Method O2 Flow Rate 04/18/22 11:44 Room Air 04/18/22 10:42 Nasal Cannula 04/18/22 10:40 04/18/22 09:42 93 04/18/22 07:53 Nasal Cannula 2 04/18/22 02:15 Nasal Cannula 2 PG Care Time/CCT Total # of Minutes Spent Total Time Spent with Patient: Total time spent is greater than 50% in coordination of care (as documented) at patient's floor/unit and/or counseling patient: Coding Level of Care Code 06303 Post Operative Follow-Up Diagnoses Cholecystitis K81.9
[2022-04-18] MEDS: POLYETHYLENE (MIRALAX) 17 GM PACK PO SCH (14:45)
--- NOTE | 2022-04-18 16:31 | Hospitalist Progress Note ---
Date of Service April 18, 2022 Assessment & Plan (1) Cholecystitis: Plan: Per Dr. Fenton's notes with addendum UA suggestive of acute cholecystitis with increasing LFTs No common duct stone identified on scan Appreciate surgery input and recommended Status post laparoscopic cholecystectomy Patient may need ERCP down the line Management will be as per surgery Clinically better today but will need to stay another day Regular diet started by the surgical team She is ambulating in the room without much difficulty Noted to be short of breath with desaturation this morning Received a dose of Lasix and was advised to use spirometer Chest x-ray did not show any CHF but atelectasis If the condition improves likely discharge tomorrow but may need to a step O2 saturation test Will discontinue antibiotic at 10 AM tomorrow 04/18 Surgical sites healing well Completed IV antibiotics today MiraLAX for bowel regimen Encouraged incentive spirometry Two-step exercise test: Negative Increasing LFTs Noted prior to the surgery and worse following surgery Expected GI is aware and will have outpatient endoscopy on Wednesday at [facility] LFTs are much better-MRCP did not show any evidence of stones ERCP has been canceled (2) Asymptomatic hypertensive urgency: Plan: Acute cholecystitis, no sepsis for now Anxiety contributory Blood pressure stable History of gastric bypass No acute issues (3) Hyperlipidemia: Plan: Hyperlipidemia on statin Rx Plan DVT prophylaxis. SCDs Full code plan of care discussed with patient and her in detail and at length all questions answered They are understanding, agreeable, comfortable with the plan of care Admission and Anticipated Discharge Date Admission Date: April 14, 2022 Subjective Follow-up for acute cholecystitis, etc. Seen sitting up in bed, on room air States she felt somewhat short of breath upon walking in the hallways today, but O2 saturation remained 91% Still having some abdominal discomfort but adequately controlled by pain medications No bowel movement yet No nausea or vomiting No other symptoms Review of Systems Review of Systems: all noted and negative except for above Physical Exam Physical Exam: General- oriented x 3, not in distress, speaks in sentences with no effort or accessory muscle use Eyes- anicteric Neck- no JVD Lungs- clear breath sounds bilaterally, no rales/wheezes Heart- normal rate, regular rhythm; no murmurs Abdomen- normal bowel sounds, nondistended, soft, nontender Lap nina sites healing well Extremities- no pretibial edema, no calf tenderness Neuro- alert, oriented x 3; no gross focal neurologic deficits Skin- warm & dry Results & Data Results & Data ([facility]) Vital Signs (Past 12 Hours) Vital Signs Temp Pulse Pulse Pulse Pulse Pulse Resp 04/18/22 15:36 36.8 C 79 20 04/18/22 11:44 37.2 C 72 18 04/18/22 10:42 04/18/22 10:40 72 04/18/22 09:42 103 H 98 H 90 04/18/22 07:53 37.1 C 67 18 Resp Resp Resp BP Pulse Ox Pulse Ox Pulse Ox 04/18/22 15:36 120/75 90 04/18/22 11:44 121/73 91 04/18/22 10:42 04/18/22 10:40 04/18/22 09:42 20 20 18 91 93 04/18/22 07:53 135/86 95 Pulse Ox O2 Del Method O2 Flow Rate 04/18/22 15:36 Room Air 04/18/22 11:44 Room Air 04/18/22 10:42 Nasal Cannula 04/18/22 10:40 04/18/22 09:42 93 04/18/22 07:53 Nasal Cannula 2 all noted and reviewed including below
[2022-04-18] MEDS: ROSUVASTATIN CALCIUM 5 MG TAB PO SCH (20:19)
[2022-04-19] MEDS ORDERED: MAGNESIUM HYDROXIDE SUSP 30 ML UDC PO PRN (07:51)
[2022-04-19] MEDS ORDERED: LACTULOSE SYRUP 20 GM/30 ML UDC PO ONE (08:51)
[2022-04-19] MEDS: LOSARTAN POTASSIUM 50 MG TAB PO SCH (08:54)
[2022-04-19] MEDS: METOPROLOL SUCC 25MG EXT REL TAB PO SCH (08:54)
[2022-04-19] MEDS: SERTRALINE HCL 100 MG TABLET PO SCH (08:54)
--- NOTE | 2022-04-19 09:43 | Hospitalist Progress Note ---
Date of Service April 19, 2022 Assessment & Plan (1) Cholecystitis: Plan: Per Dr. Fenton's notes with addendum UA suggestive of acute cholecystitis with increasing LFTs No common duct stone identified on scan Appreciate surgery input and recommended Status post laparoscopic cholecystectomy Patient may need ERCP down the line Management will be as per surgery Clinically better today but will need to stay another day Regular diet started by the surgical team She is ambulating in the room without much difficulty Noted to be short of breath with desaturation this morning Received a dose of Lasix and was advised to use spirometer Chest x-ray did not show any CHF but atelectasis If the condition improves likely discharge tomorrow but may need to a step O2 saturation test Will discontinue antibiotic at 10 AM tomorrow 04/19 Surgical sites healing well Completed IV antibiotics while admitted MiraLAX daily and milk of magnesium as needed for bowel regimen Encouraged incentive spirometry Two-step exercise test: Negative Increasing LFTs Noted prior to the surgery and worse following surgery Expected GI is aware and will have outpatient endoscopy on Wednesday at [facility] LFTs are much better-MRCP did not show any evidence of stones ERCP has been canceled (2) Asymptomatic hypertensive urgency: Plan: Acute cholecystitis, no sepsis for now Anxiety contributory Blood pressure stable History of gastric bypass No acute issues (3) Hyperlipidemia: Plan: Hyperlipidemia on statin Rx Plan DVT prophylaxis. SCDs Full code Discharge to home Follow-up with general surgeon Dr. Sudhakar Ochoa in 1 week Follow-up with primary care physician in 1 week plan of care discussed with patient and her in detail and at length all questions answered They are understanding, agreeable, comfortable with the plan of care Admission and Anticipated Discharge Date Admission Date: April 14, 2022 Subjective Follow-up for acute cholecystitis, etc. Seen sitting up in bed, having breakfast, in good spirits States she feels fine overall Ambulating in the room with no problems, no shortness of breath Minimal abdominal discomfort, no nausea vomiting No BMs yet Positive flatus No other symptoms States that she is ready, like to be discharged today Review of Systems Review of Systems: all noted and negative except for above Physical Exam Physical Exam: General- oriented x 3, not in distress, speaks in sentences with no effort or accessory muscle use Eyes- anicteric Neck- no JVD Lungs- clear BS bilaterally, no rales/wheezes Heart- normal rate, regular rhythm; no murmurs Abdomen- normal bowel sounds, nondistended, soft, nontender Extremities- no pretibial edema, no calf tenderness Neuro- alert, oriented x 3; no gross focal neurologic deficits Skin- warm & dry Results & Data Results & Data ([facility]) Vital Signs (Past 12 Hours) Vital Signs Temp Pulse Pulse Resp BP Pulse Ox O2 Del Method 04/19/22 08:00 37 C 66 18 133/84 92 Room Air 04/19/22 05:12 37.0 C 77 18 132/87 91 Room Air 04/18/22 23:00 78 04/18/22 23:29 36.9 C 71 18 131/79 93 Room Air all noted and reviewed including below
[2022-04-19] MEDS: POLYETHYLENE (MIRALAX) 17 GM PACK PO SCH (09:53)
--- NOTE | 2022-04-19 09:59 | Discharge Summary ---
Discharge Summary Date of Service April 19, 2022 Notes For Next Care Provider Medication Changes From Visit MiraLAX daily As needed milk of magnesium Admission HPI Per Admitting Provider History obtained from patient, family, and records. Medical history significant for hypertension, hyperlipidemia, NAFLD, history of gastric bypass, anxiety disorder, past tobacco abuse. Patient experienced achy epigastric discomfort going to her shoulders and back today. No fever, no chills. No chest pain, no SOB. Prior episodes. Denies headache, admits to anxiety symptoms Highest SBP 200s at the ER. Ceftriaxone administered at the ER for possible cholecystitis Medical History as above Surgical History : Blepharoplasty, carpal tunnel surgery, cataract surgeries, hysterectomy, cystocele repair, ventral hernia repair Family History : Gallbladder disease, breast cancer, DM, heart disease Personal/Social history : Past tobacco abuse, occasional EtOH intake, retired director for adult living facility Admission Exam Per Admitting Provider GENERAL: Comfortable, slightly anxious, pleasant, obese, looks younger for stated age, no respiratory distress SKIN: Normal color, warm HEENT: [place] palpebral conjunctivae, no ptosis, dry buccal mucosa NECK : Supple, short neck, no tenderness CHEST : CTA, no tenderness HEART : Bradycardic, no obvious murmurs ABDOMEN: Some distention, epigastric tenderness EXTREMITIES : Minimal LE swelling, no LE tenderness, no other conspicuous deformities noted NEUROLOGIC : Coherent, no facial asymmetry, no other gross focality Principal Dx & Hospital Course #1 = Principal Diagnosis (1) Cholecystitis: Per Dr. Fenton's notes with addendum UA suggestive of acute cholecystitis with increasing LFTs No common duct stone identified on scan Status post laparoscopic cholecystectomy 04/19 Surgical sites healing well Completed IV antibiotics while admitted MiraLAX daily and milk of magnesium as needed for bowel regimen Encouraged incentive spirometry Two-step exercise test: Negative Elevation of LFTs Noted prior to the surgery and worse following surgery GI is aware and will have outpatient endoscopy on Wednesday at [facility] LFTs are much better-MRCP did not show any evidence of stones ERCP has been canceled Renal Cyst seen on CT abdomen A 2.2 cm cyst arises from the left kidney. ff up as outpatient (2) Asymptomatic hypertensive urgency: Improved History of gastric bypass No acute issues (3) Hyperlipidemia: Hyperlipidemia on statin Rx Plan DVT prophylaxis. SCDs Full code Discharge to home Follow-up with general surgeon Dr. Sudhakar Ochoa in 1 week Follow-up with primary care physician in 1 week plan of care discussed with patient and her in detail and at length all questions answered They are understanding, agreeable, comfortable with the plan of care Discharge Exam General- oriented x 3, not in distress, speaks in sentences with no effort or accessory muscle use Eyes- anicteric Neck- no JVD Lungs- clear BS bilaterally, no rales/wheezes Heart- normal rate, regular rhythm; no murmurs Abdomen- normal bowel sounds, nondistended, soft, nontender Extremities- no pretibial edema, no calf tenderness Neuro- alert, oriented x 3; no gross focal neurologic deficits Skin- warm & dry Updated Medication List Medication Instructions Recorded Confirmed Type alprazolam 0.25 mg tablet (Xanax) 0.25 mg PO TID PRN Anxiety 02/25/18 04/14/22 History metoprolol succinate 25 mg 25 mg PO BID 02/25/18 04/14/22 History tablet,extended release 24 hr sertraline 100 mg tablet 100 mg PO BID 02/25/18 04/14/22 History losartan 100 mg tablet (Cozaar) 100 mg PO QAM 10/15/20 04/14/22 History rosuvastatin 5 mg tablet (Crestor) 5 mg PO QPM 10/15/20 04/14/22 History Calcium W/ Vitamin D3 2 tab PO DAILY 04/14/22 04/14/22 History Collagen Ultra 1 tab PO DAILY 04/14/22 04/14/22 History amoxicillin 500 mg capsule 500 mg PO BID 04/14/22 04/14/22 History biotin 10 mg tablet 10 mg PO TID 04/14/22 04/14/22 History buspirone 15 mg tablet 7.5 - 15 mg PO TID PRN Anxiety 04/14/22 04/14/22 History chlorhexidine gluconate 0.12 % 15 ml PO BID 04/14/22 04/14/22 History mouthwash cholecalciferol (vitamin D3) 25 75 mcg PO DAILY 04/14/22 04/14/22 History mcg (1,000 unit) capsule (Vitamin D3) solifenacin 10 mg tablet 10 mg PO DAILY 04/14/22 04/14/22 History triamcinolone acetonide 0.1 % 1 applic topical BID PRN Skin 04/14/22 04/14/22 History topical cream Irritation magnesium hydroxide 400 mg/5 mL 30 ml PO Q6H PRN constipation #355 04/19/22 Rx oral suspension (Milk of Magnesia) mL polyethylene glycol 3350 17 gram 17 g PO DAILY 14 days #14 ea 04/19/22 Rx oral powder packet (Miralax) Hospital Stay Data Consultations 04/14/22 18:45 Consult General Surgery Stat 04/14/22 18:51 ED Decision to Admit Stat 04/15/22 08:09 Consult Gastroenterology Routine Procedures Performed Operation Date: 04/15/22 08:20 Actual Procedures p Laparoscopic Cholecystectomy(Not Applicable) - Sudhakar Ochoa, Diagnostic Imagining Performed 04/14/22 16:49 CT abd pelvis IV con only Stat COMPARISON STUDY: Abdominal radiograph dated 07/02/2008. TECHNIQUE: Following the IV administration of 86 cc of Optiray 350, CT scan of the abdomen and pelvis is performed from the lung bases to the proximal femora. Images are reviewed in the axial, sagittal, and coronal planes. IV contrast was administered without complication. A dose lowering technique was utilized adhering to the principles of ALARA. CT DOSE: 548.01 mGy.cm FINDINGS: Lung bases: The heart is normal in size and without pericardial effusion. There are coronary artery calcifications. The lung bases are clear noting bibasilar scarring/atelectasis. Liver: The contrast-enhanced liver is normal in size, contour, and attenuation. There is no intrahepatic biliary ductal dilatation. The hepatic veins and portal veins are patent. There is periportal edema. Gallbladder: The gallbladder is slightly distended and contains calcified gallstones there is infiltration identified around the hepatic hilum and the appearance is suspicious for acute cholecystitis. Spleen: Normal in size and attenuation. Pancreas: Unremarkable. Adrenal glands: Unremarkable. Kidneys: The contrast enhanced kidneys demonstrate cortical atrophy and are without hydronephrosis. The kidneys enhance symmetrically. A 2.2 cm cyst arises from the left kidney. Abdominal vasculature: The abdominal aorta is normal in course and caliber noting mild atherosclerotic calcification. Bowel: Postsurgical change involving the stomach is consistent with a Willis-en-Y gastric bypass procedure. There is mild to moderate colonic fecal retention. No bowel obstruction is seen. A duodenal diverticulum is incidentally noted. The appendix is well-visualized and normal. A ventral hernia in the pelvis contains a nonobstructed small bowel loop. This is similar to 388. Peritoneum: There is no intraperitoneal free air or abdominal ascites. There is evidence of previous ventral hernia repair. There is laxity of the ventral abdominal wall with protrusion of abdominal contents. Lymphadenopathy: None. Pelvic viscera: The bladder is decompressed and grossly unremarkable. The uterus is surgically absent. No adnexal lesion is seen. Surgical clips are present in the pelvis bilaterally. There is a fat-containing groin hernia seen on the right. Skeletal structures: The skeletal structures are osteopenic. There is mild to moderate lumbosacral spondylosis. No lytic or blastic lesions are seen. IMPRESSION: 1. Cholelithiasis within a significantly distended gallbladder. Infiltration is seen in the hepatic hilum and findings are suspicious for acute cholecystitis. Clinical and laboratory correlation will be required. A right upper quadrant ultrasound could be considered for further assessment. 2. A ventral hernia in the pelvis contains a nonobstructed small bowel loop. 3. Additional findings as above. ACT 112: Negative or not required by law. 04/15/22 US gallbladder Urgent FINDINGS: The visualized pancreas and liver appear unremarkable. The liver measures up to 16.3 cm in length. The gallbladder measures 9.3 cm in length and demonstrates wall thickening measuring up to approximately 4 to 5 mm. Trace pericholecystic fluid. The gallbladder is filled with sludge and stones. The patient was given pain medication prior to the study, therefore sonographic Onofre sign could not be obtained. Mild common bile duct dilation measures up to 8 mm. Imaged right kidney is unremarkable without hydronephrosis. Mild pelviectasis. IMPRESSION: 1. Cholelithiasis with sonographic evidence of acute cholecystitis. 2. Mild common bile duct dilation. Correlation with LFTs recommended. ACT 112: Negative or not required by law. 04/17/22 10:32 MR MRCP Stat FINDINGS: Lower chest: Trace right pleural effusion with associated atelectasis or pneumonia. Liver: Unremarkable. No focal lesions are seen. Gallbladder and biliary tree: Patient is status post cholecystomy. Free fluid is noted in the gallbladder fossa. Common bile duct measures up to 8 mm in diameter. No filling defects are seen. Pancreas: Unremarkable, no focal lesions. Spleen: Unremarkable. Adrenals: Unremarkable. Kidneys and ureters: Perinephric stranding is seen. An exophytic cyst arising from the left kidney is seen. Bowel: Unremarkable. Lymph nodes Retroperitoneal: Unremarkable. Mesenteric: Unremarkable. Peritoneum: A small amount of fat stranding is noted. Vessels: Unremarkable. Abdominal wall: Soft tissue edema is seen in the bilateral flanks. Bones: Unremarkable. IMPRESSION: Patient is status post cholecystectomy with expected peritoneal fat stranding. No filling defects are seen to suggest biliary ductal obstruction. ACT 112: Negative or not required by law. Electronically signed by: Marco Antonio Banuelos M.D. 04/17/2022 2:15 PM Pending Results Patient Have Any Pending Studies at Discharge: Yes (surgical pathology ) Discharge Instructions Given to Patient (Per Discharging Provider) You may remove your outer surgical dressings on 04/17/22 and shower. You will have small white bandages on underneath called steri strips. You may shower with these on. They will tend to fall off on their own within 7-10 days. You may purchase Tylenol over the counter if needed for additional pain control over the next few days. Take per manufacturers instructions PLEASE REFER TO YOUR NEW MEDICATION LIST AND FOLLOW INSTRUCTIONS CAREFULLY. YOUR NEW MEDICATIONS INCLUDE: MiraLAX-daily laxative Milk of magnesium-as needed for constipation Please drink plenty of water. Please continue using incentive spirometry at home frequently. Ambulate frequently. PLEASE CALL YOUR PRIMARY CARE PHYSICIAN OR RETURN TO THE ER IF WITH WORSENING OF SYMPTOMS, INCLUDING Abdominal pain, nausea vomiting, persistence of constipation, fever or chills, etc. FOLLOW UP WITH PRIMARY CARE PHYSICIAN OUTLINED ABOVE. Follow-up with general surgery in [address] Sudhakar Ochoa's office for an appointment. Contact information outlined above Total Time Total Time Spent Total Time Spent (In Minutes): >30 minutes
--- NOTE | 2022-04-20 15:45 | Hospitalist Progress Note ---
Date of Service April 20, 2022 delayed entry date of service 04/19/22 Assessment & Plan Admission and Anticipated Discharge Date Admission Date: April 14, 2022 Subjective ff up for acute nina, s/p surgery, etc seen resting in bed, comfortable in good spirits no chest pain, dyspnea, palpitations, dizziness ambulating in the room with no
== END 2022-04-19 12:27 | disposition home or self-care (01) | DRG 419 ==
LOC: ED 11:59 → SUATTDRO 20:01 → 4W 20:01
DX: K66.0 Peritoneal adhesions (postprocedural) (postinfection); E78.5 Hyperlipidemia, unspecified; Z98.84 Bariatric surgery status; I16.0 Hypertensive urgency; K81.0 Acute cholecystitis; Z87.891 Personal history of nicotine dependence; Z79.899 Other long term (current) drug therapy; N28.1 Cyst of kidney, acquired; Z83.79 Family history of other diseases of the digestive system; K76.0 Fatty (change of) liver, not elsewhere classified; Z91.048 Other nonmedicinal substance allergy status; F41.9 Anxiety disorder, unspecified; R06.02 Shortness of breath